=== PATIENT | female | born 1940 | race Hispanic/Latino ===

== ENCOUNTER 2019-04-05 19:57 | Observation (INO) | payer SELFPAY ==
[2019-04-05 20:45] LABS: Absolute Lymphocytes (CBC) 2.3 K/uL (0.7-4.9); Basophils % 0.5 % (0-1.3); Hematocrit 37.4 % (36.0-45.0); MPV 8.8 fL (7.6-11.3); RBC Red Blood Cell Count 4.25 M/uL (3.86-4.86)
[2019-04-05 20:48] LABS: Protime INR 0.97
[2019-04-05 21:05] LABS: ALT/SGPT 14 U/L (12-78); AST/SGOT 13 U/L (15-37); Albumin 3.6 g/dL (3.4-5.0); Alkaline Phosphatase 94 U/L (45-117); BUN Blood Urea Nitrogen 27 mg/dL (7-18); Bicarbonate 30 mmol/L (21-32); Bilirubin Direct < 0.1 mg/dL (0-0.2); Bilirubin Total 0.4 mg/dL (0.2-1.0); Glucose Level 261 mg/dL (74-106); Magnesium 1.8 mg/dL (1.8-2.4); NT PRO-BNP 438 pg/mL (<450); Potassium 4.6 mmol/L (3.5-5.1); Protein, Total 7.3 g/dL (6.4-8.2); Sodium Level 134 mmol/L (136-145); Troponin (Emerg Dept Use Only) < 0.02 ng/mL (0.0-0.045)
[2019-04-05] MEDS ORDERED: NA CHLORIDE 0.9% 1,000 ML ONE (21:52)
--- NOTE | 2019-04-05 21:55 | ER ---
Nurse's Notes [facility] Name: Gabriela Gayle Age: 79 yrs Sex: Female : 1940 Arrival Date: 04/05/2019 Time: 19:58 Bed 25 Private MD: Diagnosis: Strain of muscle, fascia and tendon at neck level;Essential (primary) hypertension;Dyspnea;Type 2 diabetes mellitus;Unspecified kidney failure-insufficency;Hypoxemia Presentation: 04/05 20:03 Presenting complaint: Patient states: Via deadener line: Pain in the left side of aj1 the neck that extends down the left arm and shortness of breath for the past 6 months, but last night she could not sleep because of the pain. Reports that she has seen a [employer] about this pain and they said that her heart was fine. Denies chest pain. Transition of care: patient was not received from another setting of care. Onset of symptoms was September 2018. Risk Assessment: Do you want to hurt yourself or someone else? Patient reports no desire to harm self or others. Initial Sepsis Screen: Does the patient meet any 2 criteria? No. Patient's initial sepsis screen is negative. Does the patient have a suspected source of infection? No. Patient's initial sepsis screen is negative. Care prior to arrival: None. 20:03 Method Of Arrival: Wheelchair aj1 20:03 Acuity: YARITZA 3 aj1 Triage Assessment: 20:11 General: Appears in no apparent distress. comfortable, Behavior is calm, cooperative, aj1 appropriate for age. Pain: Complains of pain in left side of neck Pain radiates to left arm Pain currently is 10 out of 10 on a pain scale. Neuro: Level of Consciousness is awake, alert, obeys commands, Oriented to person, place, time, situation. Cardiovascular: Denies chest pain, Patient's skin is warm and dry. Respiratory: Reports shortness of breath Airway is patent Respiratory effort is even, unlabored, Respiratory pattern is regular, symmetrical, Onset: The symptoms/episode began/occurred 6 months ago. 21:00 Respiratory: the patient has mild shortness of breath. mg2 Historical: - Allergies: 20:11 No Known Allergies; aj1 - PMHx: 20:11 Hyperlipidemia; Hypertension; Myocardial infarction; aj1 - Immunization history:: Flu vaccine is not up to date. - Social history:: Smoking status: Patient/guardian denies using tobacco. - Ebola Screening: : Patient denies travel to an Ebola-affected area in the 21 days before illness onset. Screenin:58 Abuse screen: Denies threats or abuse. Denies injuries from another. Nutritional mg2 screening: No deficits noted. Tuberculosis screening: No symptoms or risk factors identified. Fall Risk IV access (20 points). Assessment: 20:56 General: Appears in no apparent distress. comfortable, Behavior is calm, cooperative. mg2 Pain: Complains of pain in left side of neck Pain radiates to left arm Quality of pain is described as aching, Pain began 6 months ago Is intermittent. Neuro: Level of Consciousness is awake, alert, obeys commands, Oriented to person, place, time, situation. Cardiovascular: Capillary refill < 3 seconds Patient's skin is warm and dry. Rhythm is sinus rhythm. Respiratory: Airway is patent Respiratory effort is even, unlabored, Respiratory pattern is regular, symmetrical, Breath sounds are clear bilaterally. GI: No signs and/or symptoms were reported involving the gastrointestinal system. : No signs and/or symptoms were reported regarding the genitourinary system. EENT: No signs and/or symptoms were reported regarding the EENT system. Derm: Skin is intact, is healthy with good turgor, Skin is pink, warm \T\ dry. normal. Musculoskeletal: Circulation, motion, and sensation intact. Capillary refill < 3 seconds, Reports pain in left arm. 22:53 Reassessment: patient and family agreed for hospitalization. mg2 Vital Signs: 20:11 BP 161 / 70; Pulse 74; Resp 18; Temp 97.6; Pulse Ox 94% on R/A; Pain 10/10; aj1 20:59 BP 170 / 75; Pulse 69; Resp 18; Pulse Ox 94% on R/A; mg2 22:00 BP 161 / 78; Pulse 69; Resp 18; Pulse Ox 89% on R/A; mg2 23:22 BP 157 / 78; Pulse 64; Resp 18; Temp 98(O); Pulse Ox 100% on 4 lpm NC; mg2 ED Course: 19:58 Patient arrived in ED. ds1 20:08 Home Alfaro MD is Attending Physician. dario 20:09 Triage completed. aj1 20:11 Arm band placed on Patient placed in an exam room. aj1 20:13 Keven Chavira, RN is Primary Nurse. mg2 20:54 XRAY Chest (1 view) In Process Unspecified. EDMS 20:58 No provider procedures requiring assistance completed. Inserted saline lock: 20 gauge mg2 in left antecubital area, using aseptic technique. Blood collected. 20:59 Patient has correct armband on for positive identification. hall monitor on. Pulse mg2 ox on. NIBP on. Door closed. Warm blanket given. 21:52 Eric Farnsworth is Hospitalizing Provider. dario 22:09 CT completed. Patient tolerated procedure well. Patient moved back from CT. bq 22:19 CT Head C Spine In Process Unspecified. EDMS 22:51 US Carotid Artery Bilateral In Process Unspecified. EDMS 22:52 Ultrasound completed. Patient tolerated well. sg3 23:22 Patient admitted, IV remains in place. mg2 Administered Medications: 22:47 Drug: Aspirin 162 mg Route: PO; mg2 23:16 Follow up: Response: No adverse reaction mg2 22:48 Drug: NS 0.9% 500 ml Route: IV; Rate: bolus; Site: left antecubital; mg2 23:20 Follow up: Response: No adverse reaction; IV Status: Completed infusion; IV Intake: mg2 500ml 22:48 Drug: morphine 2 mg Route: IVP; Site: left antecubital; mg2 23:20 Follow up: Response: No adverse reaction; Marked relief of symptoms mg2 22:48 Drug: Zofran 4 mg Route: IVP; Site: left antecubital; mg2 23:20 Follow up: Response: No adverse reaction; Marked relief of symptoms mg2 23:20 Drug: NS 0.9% 1000 ml Route: IV; Rate: 125 ml/hr; Site: left antecubital; mg2 23:21 Follow up: Response: No adverse reaction; IV Status: Infusion continued upon admission mg2 Intake: 23:20 IV: 500ml; Total: 500ml. mg2 Outcome: 21:54 Decision to Hospitalize by Provider. dario 23:22 Admitted to Tele accompanied by tech, via wheelchair, room 406, with oxygen, with mg2 chart, Report called to PAULO Garcia 23:22 Condition: stable 23:22 Instructed on the need for admit, Demonstrated understanding of instructions. 23:45 Patient left the ED. mg2 Signatures: Dispatcher [employer] Pearl Lau RN RN aj1 Home Alfaro MD MD cha Quilty, Betty bq Sanford, Demi ds1 Nida Rodríguez 3 Keven Chavira, PAULO RN mg2
--- NOTE | 2019-04-05 21:55 | EDPHYS ---
Physician Documentation [facility] Name: Gabriela Gayle Age: 79 yrs Sex: Female : 1940 Arrival Date: 04/05/2019 Time: 19:58 Bed 25 Private MD: ED Physician Home Alfaro HPI: 04/05 21:48 This 79 yrs old Female presents to ER via Wheelchair with complaints of dario Shortness Of Breath. 21:48 The patient has shortness of breath at rest. Onset: The symptoms/episode began/occurred dario 2 day(s) ago. Historical: - Allergies: 20:11 No Known Allergies; aj1 - PMHx: 20:11 Hyperlipidemia; Hypertension; Myocardial infarction; aj1 - Immunization history:: Flu vaccine is not up to date. - Social history:: Smoking status: Patient/guardian denies using tobacco. - Ebola Screening: : Patient denies travel to an Ebola-affected area in the 21 days before illness onset. ROS: 21:49 Constitutional: Negative for fever, chills, and weight loss, Eyes: Negative for injury, dario pain, redness, and discharge, ENT: Negative for injury, pain, and discharge, Cardiovascular: Negative for chest pain, palpitations, and edema, Abdomen/GI: Negative for abdominal pain, nausea, vomiting, diarrhea, and constipation, Back: Negative for injury and pain, : Negative for injury, bleeding, discharge, and swelling, MS/Extremity: Negative for injury and deformity, Skin: Negative for injury, rash, and discoloration, Neuro: Negative for headache, weakness, numbness, tingling, and seizure, Psych: Negative for depression, anxiety, suicide ideation, homicidal ideation, and hallucinations, Allergy/Immunology: Negative for hives, rash, and allergies, Endocrine: Negative for neck swelling, polydipsia, polyuria, polyphagia, and marked weight changes, Hematologic/Lymphatic: Negative for swollen nodes, abnormal bleeding, and unusual bruising. 21:49 Neck: Positive for pain at rest. 21:49 Respiratory: Positive for shortness of breath, at rest. Exam: 21:49 Constitutional: This is a well developed, well nourished patient who is awake, alert, dario and in no acute distress. Head/Face: Normocephalic, atraumatic. Eyes: Pupils equal round and reactive to light, extra-ocular motions intact. Lids and lashes normal. Conjunctiva and sclera are non-icteric and not injected. Cornea within normal limits. Periorbital areas with no swelling, redness, or edema. ENT: Nares patent. No nasal discharge, no septal abnormalities noted. Tympanic membranes are normal and external auditory canals are clear. Oropharynx with no redness, swelling, or masses, exudates, or evidence of obstruction, uvula midline. Mucous membranes moist. Neck: Trachea midline, no thyromegaly or masses palpated, and no cervical lymphadenopathy. Supple, full range of motion without nuchal rigidity, or vertebral point tenderness. No Meningismus. Chest/axilla: Normal chest wall appearance and motion. Nontender with no deformity. No lesions are appreciated. Cardiovascular: Regular rate and rhythm with a normal S1 and S2. No gallops, murmurs, or rubs. Normal PMI, no JVD. No pulse deficits. Respiratory: Lungs have equal breath sounds bilaterally, clear to auscultation and percussion. No rales, rhonchi or wheezes noted. No increased work of breathing, no retractions or nasal flaring. Abdomen/GI: Soft, non-tender, with normal bowel sounds. No distension or tympany. No guarding or rebound. No evidence of tenderness throughout. Back: No spinal tenderness. No costovertebral tenderness. Full range of motion. Skin: Warm, dry with normal turgor. Normal color with no rashes, no lesions, and no evidence of cellulitis. MS/ Extremity: Pulses equal, no cyanosis. Neurovascular intact. Full, normal range of motion. Neuro: Awake and alert, GCS 15, oriented to person, place, time, and situation. Cranial nerves II-XII grossly intact. Motor strength 5/5 in all extremities. Sensory grossly intact. Cerebellar exam normal. Normal gait. Psych: Awake, alert, with orientation to person, place and time. Behavior, mood, and affect are within normal limits. 21:49 Musculoskeletal/extremity: DVT Exam: No signs of deep vein thrombosis. no pain, no swelling, no tenderness, negative Homans' sign noted on exam, no appreciated bluish discoloration, no erythema, no increased warmth. Vital Signs: 20:11 BP 161 / 70; Pulse 74; Resp 18; Temp 97.6; Pulse Ox 94% on R/A; Pain 10/10; aj1 20:59 BP 170 / 75; Pulse 69; Resp 18; Pulse Ox 94% on R/A; mg2 22:00 BP 161 / 78; Pulse 69; Resp 18; Pulse Ox 89% on R/A; mg2 23:22 BP 157 / 78; Pulse 64; Resp 18; Temp 98(O); Pulse Ox 100% on 4 lpm NC; mg2 MDM: 20:08 Patient medically screened. [facility] 21:50 Data reviewed: vital signs, nurses notes, lab test result(s), EKG, radiologic studies, [facility] CT scan, plain films. 04/05 20:30 Order name: Basic Metabolic Panel; Complete Time: 21:45 [facility] 04/05 20:30 Order name: CBC with Diff; Complete Time: 21:45 [facility] 04/05 20:30 Order name: LFT's; Complete Time: 21:45 [facility] 04/05 20:30 Order name: Magnesium; Complete Time: 21:45 [facility] 04/05 20:30 Order name: NT PRO-BNP; Complete Time: 21:45 [facility] 04/05 20:30 Order name: PT-INR; Complete Time: 21:45 [facility] 04/05 20:30 Order name: Troponin (emerg Dept Use Only); Complete Time: 21:45 [facility] 04/05 20:30 Order name: XRAY Chest (1 view) [facility] 04/05 21:47 Order name: D-Dimer [facility] 04/05 21:47 Order name: US Carotid Artery Bilateral [facility] 04/05 21:47 Order name: Urine Culture [facility] 04/05 21:48 Order name: CT Head C Spine [facility] 04/05 20:30 Order name: EKG; Complete Time: 20:31 [facility] 04/05 20:30 Order name: Cardiac monitoring; Complete Time: 20:49 [facility] 04/05 20:30 Order name: EKG - Nurse/Tech; Complete Time: 20:49 [facility] 04/05 20:30 Order name: IV Saline Lock; Complete Time: 20:49 [facility] 04/05 20:30 Order name: Labs collected and sent; Complete Time: 20:49 [facility] 04/05 20:30 Order name: O2 Per Protocol; Complete Time: 20:49 [facility] 04/05 20:30 Order name: O2 Sat Monitoring; Complete Time: 20:49 [facility] 04/05 21:47 Order name: Urine Dipstick-Ancillary (obtain specimen); Complete Time: 22:16 dario Administered Medications: 22:47 Drug: Aspirin 162 mg Route: PO; mg2 23:16 Follow up: Response: No adverse reaction mg2 22:48 Drug: NS 0.9% 500 ml Route: IV; Rate: bolus; Site: left antecubital; mg2 23:20 Follow up: Response: No adverse reaction; IV Status: Completed infusion; IV Intake: mg2 500ml 22:48 Drug: morphine 2 mg Route: IVP; Site: left antecubital; mg2 23:20 Follow up: Response: No adverse reaction; Marked relief of symptoms mg2 22:48 Drug: Zofran 4 mg Route: IVP; Site: left antecubital; mg2 23:20 Follow up: Response: No adverse reaction; Marked relief of symptoms mg2 23:20 Drug: NS 0.9% 1000 ml Route: IV; Rate: 125 ml/hr; Site: left antecubital; mg2 23:21 Follow up: Response: No adverse reaction; IV Status: Infusion continued upon admission mg2 Disposition: 04/05/19 21:54 Hospitalization ordered by Eric Farnsworth for Inpatient Admission. Preliminary diagnosis are Strain of muscle, fascia and tendon at neck level, Essential (primary) hypertension, Dyspnea, Type 2 diabetes mellitus, Unspecified kidney failure - insufficency, Hypoxemia. - Bed requested for Telemetry/MedSurg (Inpatient). - Status is Inpatient Admission. mg2 - Condition is Stable. - Problem is new. - Symptoms have improved. UTI on Admission? No Signatures: Dispatcher [employer] EDPA Pearl Beard RN RN aj1 Home Alfaro MD MD cha Garcia, Cindy, RN RN Keven Chavira RN RN mg2 Corrections: (The following items were deleted from the chart) 22:04 21:54 Hospitalization Ordered by Eric Farnsworth for Inpatient Admission. Preliminary dario diagnosis is Strain of muscle, fascia and tendon at neck level; Essential (primary) hypertension; Dyspnea; Type 2 diabetes mellitus; Unspecified kidney failure - insufficency. Bed requested for Telemetry/MedSurg (Inpatient). Status is Inpatient Admission. Condition is Stable. Problem is new. Symptoms have improved. UTI on Admission? No. dario 23:06 22:04 04/05/2019 21:54 Hospitalization Ordered by Eric Farnsworth for Inpatient cg Admission. Preliminary diagnosis is Strain of muscle, fascia and tendon at neck level; Essential (primary) hypertension; Dyspnea; Type 2 diabetes mellitus; Unspecified kidney failure - insufficency; Hypoxemia. Bed requested for Telemetry/MedSurg (Inpatient). Status is Inpatient Admission. Condition is Stable. Problem is new. Symptoms have improved. UTI on Admission? No. dario 23:45 23:06 04/05/2019 21:54 Hospitalization Ordered by Eric Farnsworth for Inpatient mg2 Admission. Preliminary diagnosis is Strain of muscle, fascia and tendon at neck level; Essential (primary) hypertension; Dyspnea; Type 2 diabetes mellitus; Unspecified kidney failure - insufficency; Hypoxemia. Bed requested for Telemetry/MedSurg (Inpatient). Status is Inpatient Admission. Condition is Stable. Problem is new. Symptoms have improved. UTI on Admission? No. cg
[2019-04-05] MEDS ORDERED: ASPIRIN EC 81 MG TAB PO ONE (22:27)
[2019-04-05] MEDS ORDERED: MORPHINE 2 MG/ML SYR ONE (22:27)
[2019-04-05] MEDS ORDERED: ONDANSETRON 4 MG/2 ML VIAL ONE (22:27)
[2019-04-06 00:04] VITALS: BMI 23.6
[2019-04-06 00:23] LABS: Urine Appearance CLEAR; Urine Bilirubin NEGATIVE (NEG); Urine Blood NEGATIVE (NEG); Urine Color YELLOW; Urine Glucose 2+ (NEG); Urine Protein NEGATIVE (NEG); Urine Urobilinogen 0.2 mg/dL (0.2-1.0)
[2019-04-06 00:24] LABS: Urine Microscopic Reflex NO UMIC
--- NOTE | 2019-04-06 00:45 | P.HP ---
Certification for Inpatient Patient admitted to: Observation With expected LOS: <2 Midnights Practitioner: I am a practitioner with admitting privileges, knowledge of patient current condition, hospital course, and medical plan of care. Services: Services provided to patient in accordance with Admission requirements found in Title 42 Section 412.3 of the Code of Federal Regulations Patient History Date of Service: 04/06/19 Reason for admission: Neck and left shoulder History of Present Illness: 79-year-old Mongolian-speaking woman visiting from [place], history of coronary artery disease, hypertension and hyperlipidemia presented to the emergency department accompanied by her daughter with a complaint pain on the left side of her neck, radiates to her shoulder and arm, described as intermittent, present for about 1 week. According to the daughter, patient saw her physician at [place] and was told her heart was fine. She presented to the ED due to increasing pain. In the ED, initial troponin negative, chest x-ray unremarkable, EKG also unremarkable non-specific ST-T changes. Head CT negative for acute disease. Cervical spine CTs done and the result is pending. Patient is placed under observation for acute coronary syndrome rule out. Allergies No Known Allergies Allergy (Verified 04/06/19 00:00) Home Medications: Aspirin Chewable [Aspirin Chewable*] 1 tab PO DAILY 04/06/19 Clopidogrel Bisulfate [Plavix*] 1 tab PO DAILY 04/06/19 Felodipine [Plendil] 1 tab PO DAILY 04/06/19 Omeprazole 1 tab PO DAILY 04/06/19 - Past Medical/Surgical History -: CAD -: Hypertension -: Hyperlipidemia - Family History Family History: Reviewed- Non-Contributory - Family History Father Notes: denies Mother Notes: denies - Social History Smoking Status: Never smoker Alcohol use: No CD- Drugs: No Review of Systems Other: General: No fever, no malaise, no unintentional weight loss. Eyes: No eye discharge, Respiratory: No cough, no shortness of breath. CVS: No palpitation, no lightheadedness. GI: No abdominal pain, no nausea no vomit, no constipation, no diarrhea. Genitourinary: No dysuria, no urinary frequency, no incontinence, no hematuria. Musculoskeletal: No joint pains, or joint swelling, no gait instability. Neurology: No headache, no asymmetric, weakness, no problem with swallowing. Except as documented, all other systems reviewed and negative. Physical Examination - Vital Signs Temperature: 98 F Blood Pressure: 157/78 Pulse: 64 Respirations: 18 - Physical Exam General: Alert, In no apparent distress, Oriented x3 HEENT: Normocephalic, Mucous membr. moist/pink Neck: Supple, 2+ carotid pulse no bruit, JVD not distended, No Thyromegaly Respiratory: Clear to auscultation bilaterally, Normal air movement Cardiovascular: No edema, Regular rate/rhythm, Normal S1 S2, No murmurs Capillary refill: <2 Seconds Gastrointestinal: Normal bowel sounds, Soft and benign, Non-distended, No tenderness Musculoskeletal: Tenderness (Left lateral aspect of neck and supraclavicular area.) Integumentary: No rashes, No erythema Neurological: Normal speech, Normal strength at 5/5 x4 extr, Cranial nerves 3- 12 intact - Studies Laboratory Data (last 24 hrs) 04/05/19 20:35: PT 11.5, INR 0.97 04/05/19 20:35: WBC 7.3, Hgb 12.4, Hct 37.4, Plt Count 165 04/05/19 20:35: Sodium 134 L, Potassium 4.6, BUN 27 H, Creatinine 1.15, Glucose 261 H, Magnesium 1.8, Total Bilirubin 0.4, AST 13 L, ALT 14, Alkaline Phosphatase 94 Assessment and Plan - Problems (Diagnosis) (1) Neck pain on left side Current Visit: Yes Status: Acute (2) CAD (coronary artery disease) Current Visit: Yes Status: Chronic (3) Hypertension Current Visit: Yes Status: Chronic (4) Hyperlipidemia Current Visit: Yes Status: Chronic - Plan Place under observation Trend troponin Resume home aspirin and Plavix Check lipid profile Start Lipitor Follow CT cervical spine result Pain management-tramadol Metoprolol 25 mg bid for CAD and hypertension. - Advance Directives Does patient have a Living Will: No Does patient have a Durable POA for Healthcare: No
[2019-04-06] MEDS ORDERED: TRAMADOL HCL 50 MG TAB PO PRN (01:10)
[2019-04-06] MEDS ORDERED: ACETAMINOPHEN 500 MG TAB PO PRN (01:10)
[2019-04-06] MEDS ORDERED: NITROGLYCERIN 0.4 MG/TAB SL PRN (01:10)
[2019-04-06 02:28] LABS: HDL Cholesterol 72 mg/dL (40-60); LDL Cholesterol, Calculated 76 (<130); Troponin I < 0.02 ng/mL (0.0-0.045)
[2019-04-06] MEDS ORDERED: METOPROLOL TAR 25 MG TAB PO SCH (06:00)
--- NOTE | 2019-04-06 07:13 | RAD REPORT ---
EXAM DESCRIPTION: USCarotid Artery Ixzqkahdw10/20/2019 10:51 pm CLINICAL HISTORY: Syncope/neck pain COMPARISON: None FINDINGS: The velocity of the right internal carotid artery equals 90 cm/sec. The right ICA/CCA rati o 1 The velocity of the left internal carotid artery equals 116 cm/sec. The left ICA/CCA ratio 0.8 Minimal plaque is present within the carotid arteries. The vertebral arteries demonstrate antegrade flow IMPRESSION: Minimal plaque within the carotid arteries without evidence of a hemodynamically signifi cant stenosis NASCET criteria used. Mild 0-49% stenosis Moderate 50-69% stenosis Severe 70-99% stenosis
[2019-04-06] MEDS: INSULIN -REGULAR HUMAN 50 UNIT/0.5 ML ML SQ SCH ×4 (07:30→21:00)
--- NOTE | 2019-04-06 07:30 | RAD REPORT ---
EXAM DESCRIPTION: Mare Single View04/05/2019 8:55 pm CLINICAL HISTORY: sob COMPARISON: none FINDINGS: Mild biapical lung opacities Heart is normal size Mild prominence right hilum IMPRESSION: Mild biapical lung opacities may represent scarring or mild pneumonitis Mild prominence of the right hilum probably confluence of pulmonary vessels. Lymphadenopathy can also have this appearance but probably is less likely. PA and lateral chest series recommended
--- NOTE | 2019-04-06 07:51 | EKG ---
Test Date: 2019-04-05 Test Time: 20:42:34 Watch Dial Maker: MG MEASUREMENT RESULTS: Intervals: Rate: 69 MI: 180 QRSD: 76 QT: 378 QTc: 405 [place]: P: 71 MI: 180 QRS: -7 T: 26 INTERPRETIVE STATEMENTS: Normal sinus rhythm Septal infarct, age undetermined Abnormal ECG No previous ECG available for comparison Electronically Signed On 04-06-19 07:50:19 CDT by Samuel Moseley
[2019-04-06] MEDS: ENOXAPARIN 30 MG/0.3 ML SQ SCH (08:29)
[2019-04-06] MEDS ORDERED: INFLUENZA VACCINE (for 3y+) 0.5 ML DOSE IMVAC ONE (09:00)
[2019-04-06] MEDS ORDERED: PNEUMOCOCCAL VACCINE 0.5 ML IMVAC ONE (09:00)
[2019-04-06] MEDS ORDERED: ENOXAPARIN 40 MG/0.4 ML SQ SCH (09:00)
[2019-04-06] MEDS ORDERED: ASPIRIN EC 81 MG TAB PO SCH (09:00)
--- NOTE | 2019-04-06 10:14 | RAD REPORT ---
EXAM DESCRIPTION: CT - Head C Spine Mpr Wo Con - 04/05/2019 10:53 pm CLINICAL HISTORY: The patient is 79 years old and is Female; PAIN TECHNIQUE: Axial computed tomography images of the head/brain and cervical spine without intravenous contrast. Sagittal and coronal reformatted images were created and reviewed. This CT exam was pe rformed using one or more of the following dose reduction techniques: automated exposure control, a djustment of the mA and/or kV according to patient size, and/or use of iterative reconstruction techn ique. COMPARISON: No relevant prior studies available. FINDINGS: Brain: Periventricular and deep white matter hypodensities, most commonly due to nonspec [facility] white matter chronic microvascular ischemia. Mild cerebral atrophy. Multiple scattered calcifications throughout the brain may be secondary to prior infectious or inflammatory process. No hemorrhage. Ventricles: Unremarkable. No ventriculomegaly. Skull: No acute fracture. Sinuses: Unremarkable as visualized. No acute sinusitis. Mastoid air cells: Unremarkable as visualized. No mastoid effusion. Vertebrae: Unremarkable. No acute fracture. Normal alignment. Discs/spinal canal/neural foramina: With disc height loss and osteophyte formation seen at C4/5 and C5/6. No spinal canal stenosis. Soft tissues: Unremarkable. Vasculature: Vascular calcifications. IMPRESSION: 1. No acute spine abnormality. No fracture or subluxation. Spine degenerative changes. 2. No acute intracranial findings. Mild cerebral atrophy and nonspecific chronic microvascular isch emic changes. Electronically signed by: Curt Jay MD 04/05/2019 10:48 PM CDT Due to temporary technical issues with the PACS/Fluency reporting system, reports are being signed by the in house radiologist as a courtesy to ensure prompt reporting. The interpreting radiologist is f ully responsible for the content of the report.
--- NOTE | 2019-04-06 12:00 | RAD REPORT ---
EXAM DESCRIPTION: CT - Thorax Wo Con - 04/06/2019 11:37 am CLINICAL HISTORY: sob COMPARISON: April 05, 2019 chest x-ray TECHNIQUE: Computed axial tomography of the chest was obtained. Contrast was not requested. All CT scans are performed using dose optimization technique as appropriate and may include automated exposure control or mA/KV adjustment according to patient size. FINDINGS: The evaluation of mediastinum, priscila and vessels is limited secondary to lack of IV contras t administration. Mild tree-in-bud opacities are present within the lungs bilaterally. Calcified mediastinal lymph nodes are present. Noncalcified lymphadenopathy is not seen. A pleural effusion is not present. No pericardial effusion IMPRESSION: Mild bilateral tree-in-bud opacities may indicate an atypical pneumonia
[2019-04-06] MEDS: AZITHROMYCIN IV 500 MG in NA CHLORIDE 0.9% 250 ML IVPB SCH (14:31)
[2019-04-06] MEDS: CEFTRIAXONE/SWI 1gm 1 GM/10 ML SYR IV SCH (14:31)
[2019-04-06] MEDS ORDERED: ATORVASTATIN 20 MG TAB PO SCH (21:00)
[2019-04-07 04:07] LABS: Absolute Lymphocytes (CBC) 1.5 K/uL (0.7-4.9); Basophils % 0.8 % (0-1.3); Lymphocytes % 19.8 % (15.3-44.8); MPV 9.2 fL (7.6-11.3); RBC Red Blood Cell Count 3.88 M/uL (3.86-4.86)
[2019-04-07 04:24] LABS: Potassium 4.7 mmol/L (3.5-5.1)
[2019-04-07] MEDS: INSULIN -REGULAR HUMAN 50 UNIT/0.5 ML ML SQ SCH (07:30)
[2019-04-07 08:21] VITALS: BP 145/66; TEMP 99.1
[2019-04-07] MEDS: AZITHROMYCIN IV 500 MG in NA CHLORIDE 0.9% 250 ML IVPB SCH (08:25)
[2019-04-07] MEDS: ENOXAPARIN 30 MG/0.3 ML SQ SCH (08:26)
[2019-04-07] MEDS: CEFTRIAXONE/SWI 1gm 1 GM/10 ML SYR IV SCH (08:26)
[2019-04-07 08:35] VITALS: O2SAT 95
[2019-04-07] MEDS ORDERED: FELODIPINE 5 MG TAB PO SCH (09:00)
[2019-04-07] MEDS ORDERED: ASPIRIN 81 MG CHEWABLE TABLET PO SCH (09:00)
[2019-04-07] MEDS ORDERED: CLOPIDOGREL 75 MG TABLET PO SCH (09:00)
[2019-04-07] MEDS ORDERED: PANTOPRAZOLE 40MG TABLET PO SCH (09:00)
--- NOTE | 2019-04-07 11:55 | P.SSS ---
Patient History Date of Service: 04/07/19 Reason for admission: Neck and left shoulder History of Present Illness: 79-year-old Nigerian-speaking woman visiting from [place], history of coronary artery disease, hypertension and hyperlipidemia presented to the emergency department accompanied by her daughter with a complaint pain on the left side of her neck, radiates to her shoulder and arm, described as intermittent, present for about 1 week. According to the daughter, patient saw her physician at [place] and was told her heart was fine. She presented to the ED due to increasing pain. In the ED, initial troponin negative, chest x-ray unremarkable, EKG also unremarkable non-specific ST-T changes. Head CT negative for acute disease. Cervical spine CTs done and the result is pending. Patient is placed under observation for acute coronary syndrome rule out. Allergies No Known Allergies Allergy (Verified 04/06/19 00:00) Home Medications: Aspirin Chewable [Aspirin Chewable*] 1 tab PO DAILY 04/06/19 Clopidogrel Bisulfate [Plavix*] 1 tab PO DAILY 04/06/19 Felodipine [Plendil] 1 tab PO DAILY 04/06/19 Omeprazole 1 tab PO DAILY 04/06/19 Azithromycin 500 mg PO DAILY #7 tablet 04/07/19 - Past Medical/Surgical History Has patient received pneumonia vaccine in the past: Yes Diabetic: Yes -: CAD -: Hypertension -: Hyperlipidemia -: DM 2 -: heart cath (5 years ago) - Family History Family History: Reviewed- Non-Contributory - Family History Father Notes: denies Mother Notes: denies - Social History Smoking Status: Never smoker Alcohol use: No CD- Drugs: No Caffeine use: No Place of Residence: Home Review of Systems 10-point ROS is otherwise unremarkable Physical Examination - Vital Signs Temperature: 99.1 F Blood Pressure: 145/66 Pulse: 80 Respirations: 18 Pulse Ox (%): 88 - Physical Exam General: Alert, In no apparent distress HEENT: Atraumatic, PERRLA, Mucous membr. moist/pink, EOMI, Sclerae nonicteric Neck: Supple, 2+ carotid pulse no bruit, No LAD, Without JVD or thyroid abnormality Respiratory: Clear to auscultation bilaterally, Normal air movement Cardiovascular: Regular rate/rhythm, Normal S1 S2 Gastrointestinal: Normal bowel sounds, No tenderness Musculoskeletal: No tenderness Integumentary: No rashes Neurological: Normal gait, Normal speech, Normal strength at 5/5 x4 extr, Normal tone, Normal affect Lymphatics: No axilla or inguinal lymphadenopathy - Studies Microbiology Data (last 24 hrs): 04/05/19 22:00 Clean Catch Urine [place] Count - Final >100,000 CFU/ML. 04/05/19 22:00 Clean Catch Urine - Final - Diagnosis (Problem(s)) (1) Pneumonia Status: Acute Qualifiers: Pneumonia type: due to unspecified organism Laterality: unspecified laterality Lung location: unspecified part of lung Qualified Code(s): J18.9 - Pneumonia, unspecified organism (2) Neck pain on left side Status: Acute (3) CAD (coronary artery disease) Status: Chronic Qualifiers: Coronary Disease-Associated Artery/Lesion type: [place] artery [place] vs. transplanted heart: [place] heart Associated angina: without angina Qualified Code(s): I25.10 - Atherosclerotic heart disease of [place] coronary artery without angina pectoris (4) Hyperlipidemia Status: Chronic Qualifiers: Hyperlipidemia type: unspecified Qualified Code(s): E78.5 - Hyperlipidemia , unspecified (5) Hypertension Status: Chronic Qualifiers: Hypertension type: essential hypertension Qualified Code(s): I10 - Essential (primary) hypertension Treatment Summary: Overall during the hospital stay patient remained stable Patient was initially admitted to the hospital for having neck pain on the left side which was radiating down to her left arm. Initially patient was admitted for ACS rule out. Troponin x2 was negative while here in the hospital. Echocardiogram was done which was within normal limits. CT chest was done to evaluate for infectious process. Patient had atypical budding pneumonia noted on the CT in. Patient was started on antibiotics. Had marked improvement in her symptoms. Neck pain had all most resolved while here in the hospital. Patient was then discharged home under stable condition. Initially patient was placed on oxygen patient however was weaned off completely from oxygenation. Patient was educated extensively regarding the use of incentive spirometer to help her lungs expand and to which aloe breathing. Patient family members both demonstrated understanding and thus patient was discharged home on a prescription of azithromycin. Patient was asked to follow up with primary care provider in about 1-2 days post discharge. - Disposition Disposition: ROUTINE DISCHARGE Condition: GOOD Diet: Regular Activity: Ad kimber
== END 2019-04-07 11:40 | disposition home or self-care (01) ==
LOC: ER 19:57 → INTOOBSV 23:32 → 4TH 23:32
PROVIDERS: ADMIT Internal Medicine; ATTEND Family Medicine
DX: M54.2 Cervicalgia (principal); J18.9 Pneumonia, unspecified organism; I25.10 Atherosclerotic heart disease of native coronary artery without angina pectoris; I10 Essential (primary) hypertension; E78.5 Hyperlipidemia, unspecified; E11.9 Type 2 diabetes mellitus without complications; Z23 Encounter for immunization
CPT/HCPCS: 36415; 70450; 71045; 71250; 72125; 80048; 80061; 80076; 81003; 82947; 82962; 83735; 83880; 84484; 85025; 85379; 85610; 87086; 87088; 90471; 90670; 93005; 93880; 94760; 96361; 96374; 96375; 99285; G0378; J0456; J0696; J1650; J2270; J2405; J7030; Q2035

== ENCOUNTER 2023-06-17 13:15 | Inpatient (IN) | payer SELFPAY ==
[2023-06-17 14:04] LABS: Absolute Lymphocytes (CBC) 0.7 K/uL (0.7-4.9); Hematocrit 36.6 % (36.0-45.0); Lymphocytes % 6.4 % (15.3-44.8); MCV 91.8 fL (80-100); MPV 8.9 fL (7.6-11.3); Platelets 276 thou/uL (152-406); RBC Red Blood Cell Count 3.98 M/uL (3.86-4.86)
[2023-06-17 14:22] LABS: Protime INR 1.08
[2023-06-17] MEDS ORDERED: ASPIRIN 81 MG CHEWABLE TABLET ONE (14:25)
[2023-06-17 14:37] LABS: Albumin 2.6 g/dL (3.4-5.0); Bilirubin Direct 0.1 mg/dL (0-0.2); Bilirubin Indirect, Calculated 0.2 mg/dL (0.2-0.8); Bilirubin Total 0.3 mg/dL (0.2-1.0); Magnesium 1.6 mg/dL (1.6-2.4); Potassium 5.5 mEq/L (3.5-5.1); Protein, Total 7.7 g/dL (6.4-8.2); Troponin High Sensitivity 15.3 pg/mL (<58.9)
[2023-06-17 14:41] LABS: SARS-COV-2 RT PCR NEGATIVE (NEGATIVE)
--- NOTE | 2023-06-17 14:44 | RAD REPORT ---
EXAM DESCRIPTION: Mare Single View06/17/2023 2:23 pm CLINICAL HISTORY: Shortness of breath COMPARISON: 2018 FINDINGS: A vague opacity left upper lobe. Right lung appears clear of acute infiltrate. Heart is normal size IMPRESSION: Vague left upper lobe opacity may represent pneumonia. This should be followed until it has cleared to help exclude a post obstructive process/underlying mass
[2023-06-17] MEDS ORDERED: NA CHLORIDE 0.9% 100 ML ONE (14:59)
[2023-06-17] MEDS ORDERED: PIPERACIL/TAZO 3.375 GM VIAL IV ONE (14:59)
[2023-06-17] MEDS ORDERED: NA CHLORIDE 0.9% 500 ML ONE (14:59)
[2023-06-17] MEDS ORDERED: NA CHLORIDE 0.9% 250 ML ONE ×2 (14:59→18:18)
--- NOTE | 2023-06-17 15:16 | EDPHYS ---
[facility] Name: Gabriela Gayle Age: 83 yrs Sex: Female : 1940 Arrival Date: 06/17/2023 Time: 13:15 Bed 17 Private MD: ED Physician Bar Chaudhary HPI: 06/17 14:12 This 83 yrs old Female presents to ER via Wheelchair with complaints of High snw Blood Sugar, Shortness Of Breath. 14:12 The patient or guardian reports hyperglycemia, that was potentially precipitated by snw URI. Onset: The symptoms/episode began/occurred acutely. Associated signs and symptoms: Pertinent positives: shortness of breath. Current symptoms: In the emergency department the patient's symptoms are unchanged from the initial presentation. The patient has experienced similar episodes in the past. It is unknown whether or not the patient has recently seen a physician. lives in [place], here visiting. Historical: - Allergies: 13:30 No Known Allergies; aa5 - PMHx: 13:30 Hyperlipidemia; Hypertension; Myocardial infarction; Diabetes mellitus; aa5 - PSHx: 13:30 heart cath; aa5 - Immunization history:: Adult Immunizations up to date. - Social history:: Smoking status: Patient denies any tobacco usage or history of. ROS: 14:11 Constitutional: Negative for fever, chills, and weight loss, Eyes: Negative for injury, snw pain, redness, and discharge, ENT: Negative for injury, pain, and discharge, Neck: Negative for injury, pain, and swelling, Cardiovascular: Negative for chest pain, palpitations, and edema, Abdomen/GI: Negative for abdominal pain, nausea, vomiting, diarrhea, and constipation, Back: Negative for injury and pain, : Negative for injury, bleeding, discharge, and swelling, MS/Extremity: Negative for injury and deformity, Skin: Negative for injury, rash, and discoloration, Neuro: Negative for headache, weakness, numbness, tingling, and seizure, Psych: Negative for depression, anxiety, suicide ideation, homicidal ideation, and hallucinations, 14:11 Respiratory: Positive for shortness of breath, on exertion. Exam: 14:10 Head/Face: Normocephalic, atraumatic. Eyes: Pupils equal round and reactive to light, snw extra-ocular motions intact. Lids and lashes normal. Conjunctiva and sclera are non-icteric and not injected. Cornea within normal limits. Periorbital areas with no swelling, redness, or edema. ENT: Nares patent. No nasal discharge, no septal abnormalities noted. Tympanic membranes are normal and external auditory canals are clear. Oropharynx with no redness, swelling, or masses, exudates, or evidence of obstruction, uvula midline. Mucous membranes moist. Neck: Trachea midline, no thyromegaly or masses palpated, and no cervical lymphadenopathy. Supple, full range of motion without nuchal rigidity, or vertebral point tenderness. No Meningismus. Chest/axilla: Normal chest wall appearance and motion. Nontender with no deformity. No lesions are appreciated. 14:10 Abdomen/GI: Soft, non-tender, with normal bowel sounds. No distension or tympany. No guarding or rebound. No evidence of tenderness throughout. Back: No spinal tenderness. No costovertebral tenderness. Full range of motion. Skin: Warm, dry with normal turgor. Normal color with no rashes, no lesions, and no evidence of cellulitis. MS/ Extremity: Pulses equal, no cyanosis. Neurovascular intact. Full, normal range of motion. Neuro: Awake and alert, GCS 15, oriented to person, place, time, and situation. Cranial nerves II-XII grossly intact. Motor strength 5/5 in all extremities. Sensory grossly intact. Cerebellar exam normal. Normal gait. Psych: Awake, alert, with orientation to person, place and time. Behavior, mood, and affect are within normal limits. 14:10 Constitutional: The patient appears alert, awake, frail, 14:10 Cardiovascular: Rhythm: irregularly irregular, Pulses: no pulse deficits are appreciated, Heart sounds: normal, Edema: is not appreciated, 14:10 Respiratory: mild respiratory distress is noted, Respirations: normal, Breath sounds: + upper airway congestion. wheezing: that is mild, is heard diffusely, Vital Signs: 13:20 BP 164 / 90; Pulse 130; Resp 26 S; Temp 98.3(O); Pulse Ox 78% on R/A; aa5 13:25 Pulse Ox 100% on 3 lpm NC; aa5 16:15 BP 194 / 78; Pulse 72; Resp 18; Pulse Ox 100% on 3 lpm NC; cm10 18:09 BP 179 / 77; Pulse 76; Resp 18; Pulse Ox 97% on 3 lpm NC; cm10 MDM: 13:28 Patient medically screened. snw 14:45 Post IV fluid administration reassessment for Sepsis: Sepsis focused reassessment snw complete. Heart: Irregular rhythm noted. no tachycardia Other: Did not give entire 30/kg bolus 2nd to CAD with elevated BNP. ED course: Sepsis criteria post X-ray 1. Source Pneumonia, 2. Resp rate 26, HR 130 3.. no third criteria for sepsis. 14:54 Differential diagnosis: hyperglycemia, pneumonia, dehydration. Data reviewed: vital snw signs, nurses notes. I considered the following discharge prescriptions or medication management in the emergency department Medications were administered in the Emergency Department. See AUG. 14:56 Historians other than the Patient: Daughter/Son: Daughters. Counseling: I had a snw detailed discussion with the patient and/or guardian regarding the historical points, exam findings, and any diagnostic results supporting the discharge/admit diagnosis, the presence of at least one elevated blood pressure reading (>120/80) during this emergency department visit, lab results, radiology results, the need for further work-up and treatment in the hospital. Response to treatment: the patient's symptoms have mildly improved after treatment. 16:09 Management of patient was discussed with the following: Hospitalist: Fuentes Red for Dr. pina Farnsworth. 06/17 13:34 Order name: Basic Metabolic Panel; Complete Time: 14:43 snw 06/17 13:34 Order name: CBC with Diff; Complete Time: 14:09 w 06/17 13:34 Order name: LFT's; Complete Time: 14:43 snw 06/17 13:34 Order name: Magnesium; Complete Time: 14:43 snw 06/17 13:34 Order name: NT PRO-BNP; Complete Time: 14:43 snw 06/17 13:34 Order name: PT-INR; Complete Time: 14:27 snw 06/17 13:34 Order name: Troponin HS; Complete Time: 14:43 snw 06/17 13:34 Order name: COVID-19/FLU A+B/RSV; Complete Time: 14:42 snw 06/17 14:46 Order name: Blood Culture Adult (2) formerly [facility], 1928–1983 06/17 14:46 Order name: Lactate w/ 2H reflex if indic.; Complete Time: 16:06 snw 06/17 17:07 Order name: Glucose, Ancillary Testing; Complete Time: 17:07 EDMS 06/17 18:42 Order name: Glucose, Ancillary Testing; Complete Time: 18:55 EDMS 06/17 13:34 Order name: XRAY Chest (1 view); Complete Time: 14:46 snw 06/17 15:12 Order name: CT Chest Wo Con; Complete Time: 16:30 snw 06/17 13:34 Order name: EKG; Complete Time: 13:35 snw 06/17 13:25 Order name: FSBS; Complete Time: 17:06 snw 06/17 13:34 Order name: Cardiac monitoring; Complete Time: 14:35 snw 06/17 13:34 Order name: EKG - Nurse/Tech; Complete Time: 14:35 snw 06/17 13:34 Order name: IV Saline Lock; Complete Time: 13:59 snw 06/17 13:34 Order name: Labs collected and sent; Complete Time: 14:35 snw 06/17 13:34 Order name: O2 Per Protocol; Complete Time: 13:59 snw 06/17 13:34 Order name: O2 Sat Monitoring; Complete Time: 13:59 snw EC:35 Rate is 81 beats/min. Rhythm is irregular. Left axis deviation noted. Clinical snw impression: premature atrial complexes. Administered Medications: 14:36 Drug: Aspirin PO Chewable Tablet 324 mg PO once; 81 mg tablets x 4 Route: PO; cm10 21:37 Follow up: Response: No adverse reaction cm10 16:37 Drug: NS 0.9% IV 750 ml IV at bolus continuous Route: IV; Rate: bolus; Site: left cm10 antecubital; 18:15 Follow up: Response: No adverse reaction; IV Status: Completed infusion; IV Intake: cm10 750ml 16:37 Drug: Piperacillin-Tazobactam IVPB 3.375 grams IVPB once over 60 mins; (mix in NS 100 cm10 mL) Route: IVPB; Infused Over: 60 mins; Site: left antecubital; 18:15 Follow up: Response: No adverse reaction; IV Status: Completed infusion cm10 16:56 CANCELLED (Physician Discretion): insulin regular human10 units IVP once snw 18:34 Drug: NS 0.9% IV 250 ml IV at bolus once Route: IV; Rate: bolus; Site: right forearm; cm10 21:37 Follow up: Response: No adverse reaction; IV Status: Completed infusion; IV Intake: cm10 250ml 18:34 Drug: NS 0.9% IV 1000 ml IV at 75 ml/hr continuous Route: IV; Rate: 75 ml/hr; Site: cm10 right forearm; 21:37 Follow up: Response: No adverse reaction; IV Status: Infusion continued upon transfer cm10 Disposition Summary: 06/17/23 15:15 Hospitalization Ordered Notes: Hospitalization Status: Inpatient Admission snw Provider: Eric Farnsworth snamarilys Location: Telemetry/[facility] (Inpatient) snw Condition: Stable snw Problem: new snw Symptoms: are unchanged snw Bed/Room Type: Standard snw Room Assignment: [id number](06/17/23 21:06) cg Diagnosis - Pneumonia, unspecified organism snw - Dehydration snw - Type 2 diabetes mellitus with hyperglycemia snw - Chronic kidney disease, stage 3 (moderate) - with MARTA 1.15 ->1.44(06/17/23 15:18) snw Forms: - Medication Reconciliation Form snw - SBAR form snw - Leadership Thank You Letter snw Addendum: 06/26/2023 07:02 Co-signature as Attending Physician, Bar Chaudhary MD I reviewed the patient's care r n provided by the Advanced Practice Provider and agree with the diagnosis and treatment plan. Signatures: Dispatcher [employer] Shaylee Carter, ANGIE-C CERTIFIED HEALTH EDUCATION SPECIALIST-Csnw Bar Chaudhary MD MD rn Calderon, Audri, RN RN aa5 Fuentes Red FNP-C CERTIFIED HEALTH EDUCATION SPECIALIST-Cla1 Rachelle Osei RN RN cg Martinez, Clarissa RN RN cm10 Corrections: (The following items were deleted from the chart) 06/17 14:56 14:54 Counseling: I had a detailed discussion with the patient and/or guardian snw regarding the historical points, exam findings, and any diagnostic results supporting the discharge/admit diagnosis, lab results, radiology results, the need for outpatient follow up, for definitive care, a family practitioner, an OB/Gyne specialist, a urologist, snw 14:56 14:54 Response to treatment: the patient's symptoms have markedly improved after snw treatment, snw 15:18 15:15 Chronic kidney disease, stage 3 (moderate) snw snw 16:56 15:12 Insulin Regular Human IVP 10 units IVP once ordered. snw snw 16:56 16:56 Insulin Regular Human IVP 10 units IVP once ordered. w snw 21:06 15:15 snw cg
--- NOTE | 2023-06-17 15:16 | ER ---
Nurse's Notes [facility] Name: Gabriela Gayle Age: 83 yrs Sex: Female : 1940 Arrival Date: 06/17/2023 Time: 13:15 Bed 17 Private MD: Diagnosis: Pneumonia, unspecified organism;Dehydration;Type 2 diabetes mellitus with hyperglycemia;Chronic kidney disease, stage 3 (moderate)-with MARTA 1.15 ->1.44 Presentation: 06/17 13:20 Chief complaint: Pt's family reports pt having SOB and they checked her blood sugar and aa5 it read "high". 13:20 Coronavirus screen: shortness of breath. Ebola Screen: Patient denies travel to an [facility] Ebola-affected area in the 21 days before illness onset. Initial Sepsis Screen: Does the patient meet any 2 criteria? RR > 20 per min. HR > 90 bpm. Does the patient have a suspected source of infection? Yes: Productive cough/pneumonia. Risk Assessment: Do you want to hurt yourself or someone else? Patient reports no desire to harm self or others. Onset of symptoms was June 17, 2023. 13:20 Acuity: YARITZA 1 aa5 13:20 Method Of Arrival: Wheelchair aa5 Triage Assessment: 14:48 General: Appears in no apparent distress. uncomfortable, Behavior is calm, cooperative. cm10 Pain: Denies pain. Neuro: No deficits noted. Level of Consciousness is awake, alert, obeys commands, Oriented to person, place, time, situation. Cardiovascular: No deficits noted. Patient's skin is warm and dry. Rhythm is regular. Respiratory: Reports shortness of breath on exertion cough that is Airway is patent Respiratory effort is even, unlabored, Respiratory pattern is regular, symmetrical, Breath sounds with wheezes bilaterally. Onset: The symptoms/episode began/occurred gradually, the patient has moderate shortness of breath. GI: No deficits noted. No signs and/or symptoms were reported involving the gastrointestinal system. : No deficits noted. No signs and/or symptoms were reported regarding the genitourinary system. Derm: No deficits noted. No signs and/or symptoms reported regarding the dermatologic system. Skin is intact, Skin is pink, warm \\T\\ dry. Musculoskeletal: No deficits noted. Range of motion: intact in all extremities. Historical: - Allergies: 13:30 No Known Allergies; aa5 - PMHx: 13:30 Hyperlipidemia; Hypertension; Myocardial infarction; Diabetes mellitus; aa5 - PSHx: 13:30 heart cath; aa5 - Immunization history:: Adult Immunizations up to date. - Social history:: Smoking status: Patient denies any tobacco usage or history of. Screenin:49 [facility] ED Fall Risk Assessment (Adult) History of falling in the last 3 months, cm10 including since admission No falls in past 3 months (0 pts) Confusion or Disorientation No (0 pts) Intoxicated or Sedated No (0 pts) Impaired Gait No (0 pts) Mobility Assist Device Used No (0 pt) Altered Elimination No (0 pt) Score/Fall Risk Level 0 - 2 = Low Risk Oriented to surroundings, Maintained a safe environment, Provided non-skid footwear. Abuse screen: Denies threats or abuse. Denies injuries from another. Nutritional screening: No deficits noted. Tuberculosis screening: No symptoms or risk factors identified. Assessment: 14:47 Reassessment: Pt ambulated back to restroom and O2 sat decreased to 68% on RA. Pt cm10 placed back on NC at 5L and O2 sat improved to 100%. 15:30 Reassessment: Patient appears in no apparent distress at this time. Patient and/or cm10 family updated on plan of care and expected duration. Pain level reassessed. Patient is alert, oriented x 3, equal unlabored respirations, skin warm/dry/pink. 16:30 Reassessment: Patient appears in no apparent distress at this time. Patient and/or cm10 family updated on plan of care and expected duration. Pain level reassessed. Patient is alert, oriented x 3, equal unlabored respirations, skin warm/dry/pink. 18:00 Reassessment: Patient appears in no apparent distress at this time. Patient and/or cm10 family updated on plan of care and expected duration. Pain level reassessed. Patient is alert, oriented x 3, equal unlabored respirations, skin warm/dry/pink. 19:00 Reassessment: Patient appears in no apparent distress at this time. Patient and/or cm10 family updated on plan of care and expected duration. Pain level reassessed. Patient is alert, oriented x 3, equal unlabored respirations, skin warm/dry/pink. 20:30 Reassessment: Pt resting comfortably. Family at bedside. cm10 21:07 Reassessment: Attempted to call report, nurse unavailable. cm10 Vital Signs: 13:20 BP 164 / 90; Pulse 130; Resp 26 S; Temp 98.3(O); Pulse Ox 78% on R/A; aa5 13:25 Pulse Ox 100% on 3 lpm NC; aa5 16:15 BP 194 / 78; Pulse 72; Resp 18; Pulse Ox 100% on 3 lpm NC; cm10 18:09 BP 179 / 77; Pulse 76; Resp 18; Pulse Ox 97% on 3 lpm NC; cm10 ED Course: 13:17 Patient arrived in ED. ts1 13:20 Shaylee Bolden FNP-C is PHCP. snw 13:20 Bar Chaudhary MD is Attending Physician. snw 13:20 Arm band placed on. aa5 13:43 Triage completed. aa5 13:59 Inserted saline lock: 20 gauge in right forearm, using aseptic technique. Blood ls5 collected. 13:59 Troponin HS Sent. ls5 13:59 PT-INR Sent. ls5 13:59 NT PRO-BNP Sent. ls5 13:59 Magnesium Sent. ls5 13:59 LFT's Sent. ls5 13:59 CBC with Diff Sent. ls5 13:59 Basic Metabolic Panel Sent. ls5 14:25 XRAY Chest (1 view) In Process Unspecified. EDMS 14:46 Nicol Quispe, RN is Primary Nurse. cm10 14:49 Patient has correct armband on for positive identification. Bed in low position. Call cm10 light in reach. Side rails up X2. Provided Education on: ER process and procedures. . Client placed on continuous cardiac and pulse oximetry monitoring. NIBP monitoring applied. 15:13 Eric Farnsworth is Hospitalizing Provider. snw 15:54 CT Chest Wo Con In Process Unspecified. EDMS 16:57 Inserted saline lock: 20 gauge in left antecubital area, using aseptic technique. Blood ls5 collected. 21:07 No provider procedures requiring assistance completed. Patient admitted, IV remains in cm10 place. Administered Medications: 14:36 Drug: Aspirin PO Chewable Tablet 324 mg PO once; 81 mg tablets x 4 Route: PO; cm10 21:37 Follow up: Response: No adverse reaction cm10 16:37 Drug: NS 0.9% IV 750 ml IV at bolus continuous Route: IV; Rate: bolus; Site: left cm10 antecubital; 18:15 Follow up: Response: No adverse reaction; IV Status: Completed infusion; IV Intake: cm10 750ml 16:37 Drug: Piperacillin-Tazobactam IVPB 3.375 grams IVPB once over 60 mins; (mix in NS 100 cm10 mL) Route: IVPB; Infused Over: 60 mins; Site: left antecubital; 18:15 Follow up: Response: No adverse reaction; IV Status: Completed infusion cm10 16:56 CANCELLED (Physician Discretion): insulin regular human10 units IVP once snw 18:34 Drug: NS 0.9% IV 250 ml IV at bolus once Route: IV; Rate: bolus; Site: right forearm; cm10 21:37 Follow up: Response: No adverse reaction; IV Status: Completed infusion; IV Intake: cm10 250ml 18:34 Drug: NS 0.9% IV 1000 ml IV at 75 ml/hr continuous Route: IV; Rate: 75 ml/hr; Site: cm10 right forearm; 21:37 Follow up: Response: No adverse reaction; IV Status: Infusion continued upon transfer cm10 Medication: 14:49 VIS not applicable for this client. cm10 Intake: 18:15 IV: 750ml; Total: 750ml. cm10 21:37 IV: 250ml; Total: 1000ml. cm10 Outcome: 15:15 Decision to Hospitalize by Provider. snw 21:09 Admitted to Tele accompanied by tech, via stretcher, cm10 21:09 Condition: good cm10 21:54 Patient left the ED. lg3 Signatures: Dispatcher [employer] EDShaylee Morrison, MAGAZINE PUBLISHER-C MAGAZINE PUBLISHER-Csnw Yadi Ribeiro, RN RN aa5 Any Vaughan RN RN lg3 Fito Wang5 Grace Kay PAS PAS ts1 Nicol Quispe, PAULO RN cm10
--- NOTE | 2023-06-17 16:28 | RAD REPORT ---
EXAM DESCRIPTION: CT - Thorax Wo Con - 06/17/2023 3:52 pm CLINICAL HISTORY: sob COMPARISON: Chest x-ray June 17, [address] chest TECHNIQUE: Computed axial tomography of the chest was obtained. Contrast was not requested. All CT scans are performed using dose optimization technique as appropriate and may include automated exposure control or mA/KV adjustment according to patient size. FINDINGS: The evaluation of mediastinum, priscila and vessels is limited secondary to lack of IV contras t administration. Mild to moderate left upper lobe consolidation. Small left lower lobe consolidation. Mild additional reticulonodular opacities left lung. A few chronic reticulonodular opacities right lung. A calcified mediastinal lymph nodes. No hilar lymphadenopathy. Coronary arterial calcifications A pleural effusion is not present. A pericardial effusion is not present. Small pericardial effusion IMPRESSION: Mild to moderate consolidation left upper lobe and mild left lower lobe consolidations p robably pneumonia
--- NOTE | 2023-06-17 16:55 | P.HP ---
Certification for Inpatient Patient admitted to: Inpatient With expected LOS: >2 Midnights Patient will require the following post-hospital care: None Practitioner: I am a practitioner with admitting privileges, knowledge of patient current condition, hospital course, and medical plan of care. Services: Services provided to patient in accordance with Admission requirements found in Title 42 Section 412.3 of the Code of Federal Regulations Patient History Date of Service: 06/17/23 Reason for admission: Pneumonia, hypoxia History of Present Illness: 83-year-old female with history of hypertension, CAD, ica-lobxlcg-tmdgdotyf diabetes presents emergency department chief complaint of shortness of breath, cough. She is here visiting from [place], she got here about a week ago and was already sick when she showed up. Family denies any ill contacts, patient has not been on antibiotics or steroids recently. She was evaluated in the emergency department her labs are significant for white blood cell count 10.9 sodium 131 potassium 5.5 chloride 93 bicarb 34 creatinine 1.44 GFR 36 glucose 573 lactic acid 1.0 BNP 5176 COVID and influenza/RSV negativ e CT chest without contrast was performed which revealed mild to moderate consolidation left upper lobe and mild left lower lobe consolidations probably pneumonia. Patient was treated with IV antibioticsZosyn in ED, will admit for further valuation management of pneumonia, hyperglycemia, MARTA, acute hypoxic respiratory failure. Allergies No Known Allergies Allergy (Verified 04/06/19 00:00) Home Medications: Aspirin Chewable [Aspirin Chewable*] 1 tab PO DAILY 04/06/19 Clopidogrel Bisulfate [Plavix*] 1 tab PO DAILY 04/06/19 Felodipine [Plendil] 1 tab PO DAILY 04/06/19 Omeprazole 1 tab PO DAILY 04/06/19 Azithromycin 500 mg PO DAILY #7 tablet 04/07/19 - Past Medical/Surgical History Diabetic: Yes -: CAD -: Hypertension -: Hyperlipidemia -: DM 2 -: heart cath Psychosocial/ Personal History: Lives at home, in [place] with family - Family History Father Notes: denies Mother Notes: denies - Social History Smoking Status: Never smoker Alcohol use: No CD- Drugs: No Caffeine use: No Place of Residence: Home Review of Systems 10-point ROS is otherwise unremarkable General: Fever Respiratory: Cough, Shortness of Breath Physical Examination - Physical Exam General: Alert, In no apparent distress, Oriented x3 HEENT: Atraumatic, PERRLA, EOMI Neck: Supple, 2+ carotid pulse no bruit, No LAD Respiratory: Normal air movement, Diminished, Rhonchi/gurgles Cardiovascular: Regular rate/rhythm, Normal S1 S2 Capillary refill: <2 Seconds Gastrointestinal: Normal bowel sounds, No tenderness Musculoskeletal: No tenderness Integumentary: No rashes Neurological: Normal speech, Normal strength at 5/5 x4 extr, Normal tone, Normal affect Lymphatics: No axilla or inguinal lymphadenopathy - Studies Laboratory Data (last 24 hrs) 06/17/23 06/17/23 06/17/23 13:52 13:52 13:52 WBC 10.90 Hgb 12.1 Hct 36.6 Plt Count 276 PT 11.9 INR 1.08 Sodium 131 L Potassium 5.5 H BUN 25 H Creatinine 1.44 H Glucose 573 H* Magnesium 1.6 Total Bilirubin 0.3 AST 17 ALT 19 Alkaline Phosphatase 174 H Assessment and Plan - Plan Assessment: Sepsis secondary to left upper and left mid lung pneumonia Acute hypoxic respiratory failure Diabetes mellitus type 1srd-rjpldzq-ousnqjtmz with hyperglycemia Acute kidney injury with mild hyperkalemia Hypertension CAD Plan: Sepsis secondary to left upper and left mid lung pneumonia Acute hypoxic respiratory failure Continue broad-spectrum antibiotics Blood cultures obtained in ED, lactate 1, no hypotension Supplemental oxygen as needed, wean as tolerated Diabetes mellitus type 3xtb-hiftixp-pwimnrdyl with hyperglycemia ACHS Accu-Chek, sliding scale insulin, A1c in the morning Hold metformin given MARTA Acute kidney injury with mild hyperkalemia Hold metformin, continue IV fluids overnight repeat chemistry tonight Hypertension CAD Home medications continued DVT PPX: Heparin subcu Code status: Full Discharge Plan: Home Plan to discharge in: Greater than 2 days - Advance Directives Does patient have a Living Will: No Does patient have a Durable POA for Healthcare: No - Code Status/Comfort Care Code Status Assessed: Yes (Full code) Critical Care: No Time Spent Managing Pts Care (In Minutes): 70
[2023-06-17] MEDS ORDERED: NA CHLORIDE 0.9% 1,000 ML ONE (18:18)
[2023-06-17] MEDS ORDERED: ALBUTEROL 2.5 MG/3 ML NEB SOL NEB PRN (22:08)
[2023-06-17] MEDS: ISOSORBIDE DINIT 5 MG TAB PO SCH (22:08)
[2023-06-17] MEDS ORDERED: ONDANSETRON 4 MG/2 ML VIAL IV PRN (22:08)
[2023-06-17] MEDS ORDERED: IPRATROPIUM BROM 0.5MG/2.5ML NEB PRN (22:08)
[2023-06-17] MEDS ORDERED: ISOSORBIDE DINIT 20 MG TAB ONE (22:40)
[2023-06-17 22:46] LABS: Potassium 4.9 mEq/L (3.5-5.1)
[2023-06-17] MEDS: INSULIN REGULAR (HUMAN) 100 UNIT/ML SQ SCH (22:47)
[2023-06-17] MEDS: METOPROLOL TAR 50 MG TAB PO SCH (22:47)
[2023-06-17] MEDS: HEPARIN 5000 UNIT/ML 1 ML VIAL SQ SCH (22:47)
[2023-06-17] MEDS: NA CHLORIDE 0.9% 1,000 ML IV SCH (22:48)
[2023-06-18] MEDS: HYDRALAZINE HCL 20 MG/ML VIAL IV PRN (06:13)
[2023-06-18 06:32] LABS: Absolute Lymphocytes (CBC) 1.1 K/uL (0.7-4.9); Hematocrit 32.2 % (36.0-45.0); MCV 91.2 fL (80-100); Platelets 268 thou/uL (152-406); RBC Red Blood Cell Count 3.53 M/uL (3.86-4.86)
[2023-06-18 06:47] LABS: Magnesium 1.5 mg/dL (1.6-2.4); Potassium 4.9 mEq/L (3.5-5.1); Thyroid Stimulating Hormone 1.45 uIU/mL (0.358-3.740)
[2023-06-18] MEDS: INSULIN REGULAR (HUMAN) 100 UNIT/ML SQ SCH ×4 (07:30→21:15)
[2023-06-18] MEDS ORDERED: PNEUMOCOCCAL VACCINE 0.5 ML IMVAC ONE (08:00)
[2023-06-18] MEDS ORDERED: INFLUENZA VACCINE (for 6+ mo) 0.5 ML DOSE IMVAC ONE (08:00)
[2023-06-18] MEDS: CEFTRIAXONE 1,000 MG in NA CHLORIDE 0.9% 50 ML IVPB SCH (08:46)
[2023-06-18] MEDS: HEPARIN 5000 UNIT/ML 1 ML VIAL SQ SCH ×2 (08:47→22:20)
[2023-06-18] MEDS: AZITHROMYCIN IV 500 MG in NA CHLORIDE 0.9% 250 ML IVPB SCH (08:47)
[2023-06-18] MEDS: ISOSORBIDE DINIT 5 MG TAB PO SCH ×2 (08:47→21:14)
[2023-06-18] MEDS: CLOPIDOGREL 75 MG TABLET PO SCH (08:47)
[2023-06-18] MEDS: ASPIRIN EC 81 MG TAB PO SCH (08:48)
[2023-06-18] MEDS: METOPROLOL TAR 50 MG TAB PO SCH ×2 (08:48→21:14)
[2023-06-18] MEDS: NA CHLORIDE 0.9% 1,000 ML IV SCH (08:49)
--- NOTE | 2023-06-18 10:24 | P.PN ---
Date of Service: 06/18/23 Subjective: No acute events overnight Persistent cough ROS: 10 point ROS as noted above, otherwise negative Physical exam GEN: Alert, oriented, NAD HEENT: Normal conjunctiva, sclera anicteric CV: Regular rate and rhythm, no edema Pulm: Nonlabored respirations nasal cannula oxygen2 L ABD: Soft, nontender, nondistended MSK: No joint tenderness Integumentary: No rashes Neuro: Normal speech, normal affect Vitals reviewed Assessment: Sepsis secondary to left upper and left mid lung pneumonia Acute hypoxic respiratory failure Diabetes mellitus type 9rpj-xztrtqv-vncexycsk with hyperglycemia Acute kidney injury with mild hyperkalemia Hypertension CAD Plan: Sepsis secondary to left upper and left mid lung pneumonia Acute hypoxic respiratory failure Continue broad-spectrum antibiotics Blood cultures pending continue to follow lactate 1, no hypotension Supplemental oxygen as needed, wean as tolerated Diabetes mellitus type 1xoq-hjtzhqp-xghvzlrdx with hyperglycemia ACHS Accu-Chek, sliding scale insulin A1c 10.4 Blood sugar improved Hold metformin given MARTA Acute kidney injury with mild hyperkalemia Hold metformin, continue IV fluids overnight Renal function, potassium improved/normalized continue IV fluids Hypertension CAD Home medications continued DVT PPX: Heparin subcu Code status: Full Discharge Plan: Home Plan to discharge in: Greater than 2 days Time Spent Managing Pts Care (In Minutes): 35 <Fuentes Red - Last Filed: 06/18/23 10:22> Patient seen and examined on rounds this morning. Reviewed plan of care with ESTATE ATTORNEY Teofilo. improving, continues with frequent cough, feels like gets stuck at base of throat no nausea/vomiting, minimal appetite ambulated in room today no new/worsening symptoms continue antibiotics anticipate dc home in ~2 days <Hector Chaudhary - Last Filed: 06/18/23 20:04>
[2023-06-18] MEDS: BENZONATATE 100 MG CAP PO PRN (21:20)
[2023-06-19] MEDS: NA CHLORIDE 0.9% 1,000 ML IV SCH (00:16)
[2023-06-19] MEDS: HYDRALAZINE HCL 20 MG/ML VIAL IV PRN (05:36)
[2023-06-19] MEDS: INSULIN REGULAR (HUMAN) 100 UNIT/ML SQ SCH ×4 (07:30→22:05)
[2023-06-19 08:15] LABS: Absolute Lymphocytes (CBC) 1.8 K/uL (0.7-4.9); Hematocrit 32.6 % (36.0-45.0); Lymphocytes % 16.4 % (15.3-44.8); MPV 8.7 fL (7.6-11.3); Platelets 296 thou/uL (152-406); RBC Red Blood Cell Count 3.58 M/uL (3.86-4.86)
[2023-06-19 08:27] LABS: Magnesium 1.7 mg/dL (1.6-2.4); Potassium 5.3 mEq/L (3.5-5.1)
[2023-06-19] MEDS ORDERED: FUROSEMIDE 40 MG/4 ML VIAL IV SCH (09:00)
--- NOTE | 2023-06-19 09:59 | P.PN ---
Date of Service: 06/19/23 Subjective: No acute events overnight Persistent cough working well with PT ROS: 10 point ROS as noted above, otherwise negative Physical exam GEN: Alert, oriented, NAD HEENT: Normal conjunctiva, sclera anicteric CV: Regular rate and rhythm, no edema Pulm: Nonlabored respirations nasal cannula oxygen2 L ABD: Soft, nontender, nondistended MSK: No joint tenderness Integumentary: No rashes Neuro: Normal speech, normal affect Vitals reviewed Assessment: Sepsis secondary to left upper and left mid lung pneumonia Acute hypoxic respiratory failure Diabetes mellitus type 7ygg-kjfnswh-tnpqrbxiy with hyperglycemia Acute kidney injury with mild hyperkalemia Hypertension CAD Plan: Sepsis secondary to left upper and left mid lung pneumonia Acute hypoxic respiratory failure Continue broad-spectrum antibiotics Blood cultures NGTD lactate 1, no hypotension Supplemental oxygen as needed, wean as tolerated Diabetes mellitus type 8gqk-hkhbove-kqygmunsm with hyperglycemia ACHS Accu-Chek, sliding scale insulin A1c 10.4 Blood sugar improved Hold metformin given MARTA Acute kidney injury with mild hyperkalemia Hold metformin, continue IV fluids overnight cr increased again, k5.3 will conult nephrology continue gently IVF Hypertension CAD Home medications continued DVT PPX: Heparin subcu Code status: Full Discharge Plan: Home Plan to discharge in: 24-28 hours Time Spent Managing Pts Care (In Minutes): 35
[2023-06-19] MEDS ORDERED: NA CHLORIDE 0.9% 1,000 ML IV SCH (10:00)
[2023-06-19] MEDS: CEFTRIAXONE 1,000 MG in NA CHLORIDE 0.9% 50 ML IVPB SCH (10:08)
[2023-06-19] MEDS: AZITHROMYCIN IV 500 MG in NA CHLORIDE 0.9% 250 ML IVPB SCH (10:09)
[2023-06-19] MEDS: HEPARIN 5000 UNIT/ML 1 ML VIAL SQ SCH ×2 (10:09→22:05)
[2023-06-19] MEDS: ISOSORBIDE DINIT 5 MG TAB PO SCH ×2 (10:09→22:04)
[2023-06-19] MEDS: ASPIRIN EC 81 MG TAB PO SCH (10:09)
[2023-06-19] MEDS: CLOPIDOGREL 75 MG TABLET PO SCH (10:09)
[2023-06-19] MEDS: METOPROLOL TAR 50 MG TAB PO SCH ×2 (10:09→22:04)
[2023-06-19 14:23] LABS: Potassium 5.8 mEq/L (3.5-5.1)
--- NOTE | 2023-06-19 15:39 | CON ---
Date of Consultation: 06/19/2023 Reason For Consultation: Elevated BUN and creatinine, fluid management. History Of Present Illness: This is an 83-year-old female with significant past medical history of d iabetes since 1999, complicated with neuropathy, no retinopathy, CAD, status post cardiac cath, no st enting, hypertension since 2004, patient came to the hospital complaining from shortness of breath, i ncreased gradually over the last couple of weeks. Upon arrival to the hospital, patient found to hav e elevation in BUN and creatinine with hyponatremia and hyperkalemia. For that reason, we have been consulted. Patient also has hyperglycemia. Patient was started on hydration. The patient's kidney function continued to decline. For that reason, we have been consulted. Patient is still requiring oxygenation. Past Medical History: Includes: 1.Hypertension since 2004. 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 3.Hyperlipidemia. 4.CAD, status post cardiac cath back in 2009. Allergies: NO KNOWN DRUGS ALLERGY. Home Medications: Include aspirin, Plavix, felodipine, omeprazole, azithromycin. Past Surgical History: Include cardiac cath back in 2009. Family History: Positive for diabetes and hypertension. Social History: Denied smoking. Denied drinking. Denied drugs abuse. Review of Systems: Head and Neck: No red eye. No ear pain. GI: No nausea. No vomiting. : No polyuria. No dysuria. No hematuria. ELECTRONIC TECH: No vaginal discharge. Respiratory: Has shortness of breath. Cardiovascular: Has orthopnea. Endocrine: No polydipsia. Skin: No rash. Neuro: Has neuropathy. Musculoskeletal: No joint pain. Physical Examination: General: When I saw the patient, patient lying in bed, on nasal cannula. Vital Signs: Blood pressure 177/81, pulse of 77, afebrile. Chest: Crackles, bilateral base. Heart: S1, S2. Regular. Abdomen: Soft, nontender. Extremities: Trace edema. Neurologic: Alert. No focality. Laboratory Data: WBC 11, hemoglobin 10.8, sodium 132, potassium 5.8, bicarb 28, BUN 42, creatinine 1 .7, GFR 28, calcium 9.2. Chest x-ray, no cardiomegaly but congestion bilaterally. Current Medications: The patient on, include aspirin, azithromycin, ceftriaxone, albuterol, Plavix, normal saline, Zofran. Assessment And Plan: 1.Acute kidney injury secondary to cardiorenal, look to me still on the overvolume side. I am going to go ahead and discontinue IV fluid, start the patient on Lasix and we will monitor the patient hugo sely and we will follow up. I am going to send for basic workup for the patient. 2.Hypertension, not controlled, with the presence of acute kidney injury and cardiorenal. Add nitro glycerin. Add Lasix. Discontinue IV fluid. Continue isosorbide. Please avoid any SAMANTHA inhibitor or ARB for the time being. 3.Diabetes, as by primary. 4.Questionable atypical pneumonia, as by primary. We will follow up. 5.Coronary artery disease with congestive heart failure with exacerbation. Consider Cardiology eval uation. We will optimize the fluid status for the patient with the diuresis and we will monitor. Thank you, Dr. Chaudhary, for allowing us to participate in the care of your patient. Time spent examini ng the patient [id number], reviewing data, lab and radiology, placing order, discussing the case wi th the patient, discussing the case with the daughter by bedside, discussing the case with the hospit alist and nursing staff more than 75 minutes. LINA Voice ID: [id number] Report ID: [id number]
[2023-06-19] MEDS: FUROSEMIDE 40 MG/4 ML VIAL IV SCH (16:05)
--- NOTE | 2023-06-19 20:40 | RAD REPORT ---
EXAM DESCRIPTION: US - Renal Ultrasound-Complete - 06/19/2023 8:25 pm CLINICAL HISTORY: MARTA Flank pain COMPARISON: No comparisons FINDINGS: The kidneys appear mildly echogenic, particularly the right kidney, compatible with underl rudolph medical renal disease. The right kidney measures 8.6 x 3.9 x 3.5 cm. No hydronephrosis, focal mass or perinephric fluid. The left kidney measures 8.6 x 4.4 x 3.1 cm. No hydronephrosis, focal mass or perinephric fluid. The urinary bladder is incompletely distended and not well assessed. IMPRESSION: Mildly echogenic kidneys suggesting underlying medical renal disease.
[2023-06-20] MEDS: HYDRALAZINE HCL 20 MG/ML VIAL IV PRN ×2 (05:49→15:56)
[2023-06-20] MEDS: INSULIN REGULAR (HUMAN) 100 UNIT/ML SQ SCH ×4 (07:30→21:14)
[2023-06-20 08:19] LABS: Absolute Lymphocytes (CBC) 1.5 K/uL (0.7-4.9); Hematocrit 32.7 % (36.0-45.0); Lymphocytes % 17.3 % (15.3-44.8); MCV 91.4 fL (80-100); MPV 8.7 fL (7.6-11.3); Platelets 321 thou/uL (152-406); RBC Red Blood Cell Count 3.58 M/uL (3.86-4.86)
[2023-06-20] MEDS: METOPROLOL TAR 50 MG TAB PO SCH ×2 (08:20→21:14)
[2023-06-20] MEDS: ISOSORBIDE DINIT 5 MG TAB PO SCH ×2 (08:20→21:15)
[2023-06-20] MEDS: AZITHROMYCIN IV 500 MG in NA CHLORIDE 0.9% 250 ML IVPB SCH (08:20)
[2023-06-20] MEDS: HEPARIN 5000 UNIT/ML 1 ML VIAL SQ SCH ×2 (08:20→21:14)
[2023-06-20] MEDS: ASPIRIN EC 81 MG TAB PO SCH (08:21)
[2023-06-20] MEDS: CEFTRIAXONE 1,000 MG in NA CHLORIDE 0.9% 50 ML IVPB SCH (08:21)
[2023-06-20] MEDS: CLOPIDOGREL 75 MG TABLET PO SCH (08:21)
[2023-06-20] MEDS: FUROSEMIDE 40 MG/4 ML VIAL IV SCH (08:21)
[2023-06-20 08:50] LABS: Blood Morphology Comment NOT SEEN (NOT SEEN); Platelet Estimate ADEQ; White Blood Cell Scan OK (OK)
[2023-06-20 09:08] LABS: Albumin 2.4 g/dL (3.4-5.0); Magnesium 1.7 mg/dL (1.6-2.4); Phosphorus 4.6 mg/dL (2.5-4.9); Potassium 4.7 mEq/L (3.5-5.1); Thyroid Stimulating Hormone 1.39 uIU/mL (0.358-3.740); Uric Acid 6.2 mg/dL (2.6-6.0)
--- NOTE | 2023-06-20 09:41 | P.PN ---
Date of Service: 06/20/23 Subjective: No acute events overnight Started on IV diuresis by nephrology ROS: 10 point ROS as noted above, otherwise negative Physical exam GEN: Alert, oriented, NAD HEENT: Normal conjunctiva, sclera anicteric CV: Regular rate and rhythm, no edema Pulm: Nonlabored respirations nasal cannula oxygen2 L ABD: Soft, nontender, nondistended MSK: No joint tenderness Integumentary: No rashes Neuro: Normal speech, normal affect Vitals reviewed Assessment: Sepsis secondary to left upper and left mid lung pneumonia Acute hypoxic respiratory failure Diabetes mellitus type 8bwr-btetlob-dbgunorhs with hyperglycemia Acute kidney injury with mild hyperkalemia Hypertension CAD Plan: Sepsis secondary to left upper and left mid lung pneumonia Acute hypoxic respiratory failure Continue Rocephin/Zithromax Blood cultures NGTD lactate 1, no hypotension Supplemental oxygen as needed, wean as tolerated-currently on 2 to 3 L per nasal cannula Working well with physical therapy Diabetes mellitus type 5yms-beceetq-vpntxbsvc with hyperglycemia ACHS Accu-Chek, sliding scale insulin A1c 10.4 Blood sugar improved Hold metformin given MARTA Acute kidney injury with mild hyperkalemia Seen by nephrology who feel patient is overloaded Given IV Lasix, hyperkalemia improved, no significant change in renal function yet Monitor chemistry daily Hypertension CAD Home medications continued DVT PPX: Heparin subcu Code status: Full Discharge Plan: Home Plan to discharge in: 48 to 72 hours hours Time Spent Managing Pts Care (In Minutes): 35
--- NOTE | 2023-06-20 10:51 | RAD REPORT ---
EXAM DESCRIPTION: RAD - Chest Single View - 06/20/2023 10:44 am CLINICAL HISTORY: f/u opacities COMPARISON: Chest Single View dated 06/17/2023; Chest Single View dated 04/05/2019; Renal Ultrasound-C omplete dated 06/19/2023; Thorax Wo Con dated 06/17/2023 FINDINGS: Lines: None. Lungs: Irregular airspace disease left upper lobe and left mid lung with mild improvement compared wi 06/17/2023. Pleural: No significant pleural effusions or pneumothorax. Cardiac: Similar size and configuration. Mediastinum: Within normal limits. Bones: No acute fractures. Other: None IMPRESSION: Improved, but not completely resolved, airspace disease in the left upper lobe and left mid lung.
[2023-06-20] MEDS ORDERED: MAGNESIUM SULFATE 1 gm IVPB 1 GM/100 ML BAG IV ONE (11:14)
--- NOTE | 2023-06-20 12:13 | PN ---
Date of Progress Note: 06/20/2023 Subjective: The patient was admitted to the hospital with acute kidney injury on chronic kidney dise ase. The patient was on the over volume side. The patient was started on diuresis. Physical Examination: Vital Signs: When I saw the patient, blood pressure of 175/74, pulse of 70, afebrile. Chest: Clear to auscultation. Heart: S1, S2. Systolic murmur. Abdomen: Soft, nontender. Extremities: No edema. Neurologic: Alert. No focality. Laboratory Data: Hemoglobin 10.7. Sodium 135, potassium 4.7, bicarb 28, BUN 53. Creatinine 1.7. U doretha acid 6.2, calcium 9.4, phosphorus 4.6. Iron saturation 33. Serum protein electrophoresis is sti ll pending. TSH 1.3, PTH 84. Current Medications: The patient on include: 1.Azithromycin. 2.Ceftriaxone. 3.Plavix. 4.Isosorbide. 5.Metoprolol. 6.Lasix 40. 7.Ensure. Assessment And Plan: 1.Acute kidney injury secondary to cardiorenal on advanced chronic kidney disease, currently looked to me on the normal volume side. I am going to switch Lasix to oral and we will monitor the patient. 2.Anemia secondary to chronic kidney disease. Serum protein electrophoresis is still pending. I do not see the need for GEORGIE. We will follow up. 3.Hyponatremia, dilutional. Continue diuresis. 4.Congestive heart failure with exacerbation. Switch Lasix as above. 5.Pneumonia as by primary. JOSE/OMARI Voice ID: [id number] Report ID: [id number]
[2023-06-21 08:18] LABS: Hematocrit 33.2 % (36.0-45.0); Lymphocytes % 10.5 % (15.3-44.8); MCV 90.6 fL (80-100); MPV 8.5 fL (7.6-11.3); Platelets 321 thou/uL (152-406); RBC Red Blood Cell Count 3.66 M/uL (3.86-4.86)
[2023-06-21 08:19] LABS: Absolute Lymphocytes (CBC) 0.7 K/uL (0.7-4.9)
[2023-06-21 08:34] LABS: Albumin 2.4 g/dL (3.4-5.0); Magnesium 1.9 mg/dL (1.6-2.4); Phosphorus 4.5 mg/dL (2.5-4.9); Potassium 4.6 mEq/L (3.5-5.1)
[2023-06-21] MEDS: INSULIN REGULAR (HUMAN) 100 UNIT/ML SQ SCH ×4 (09:15→20:24)
[2023-06-21] MEDS: HEPARIN 5000 UNIT/ML 1 ML VIAL SQ SCH ×2 (09:16→20:23)
[2023-06-21] MEDS: ASPIRIN EC 81 MG TAB PO SCH (09:16)
[2023-06-21] MEDS: CLOPIDOGREL 75 MG TABLET PO SCH (09:16)
[2023-06-21] MEDS: METOPROLOL TAR 50 MG TAB PO SCH ×2 (09:17→20:23)
[2023-06-21] MEDS: ISOSORBIDE DINIT 5 MG TAB PO SCH ×2 (09:17→20:27)
[2023-06-21] MEDS: FUROSEMIDE 40 MG TABLET PO SCH (09:17)
[2023-06-21] MEDS: CEFTRIAXONE 1,000 MG in NA CHLORIDE 0.9% 50 ML IVPB SCH (09:23)
[2023-06-21] MEDS: AZITHROMYCIN IV 500 MG in NA CHLORIDE 0.9% 250 ML IVPB SCH (09:30)
--- NOTE | 2023-06-21 10:02 | P.PN ---
Date of Service: 06/21/23 Subjective: No acute events overnight Poor oral intake ROS: 10 point ROS as noted above, otherwise negative Physical exam GEN: Alert, oriented, NAD HEENT: Normal conjunctiva, sclera anicteric CV: Regular rate and rhythm, no edema Pulm: Nonlabored respirations nasal cannula oxygen2 L ABD: Soft, nontender, nondistended MSK: No joint tenderness Integumentary: No rashes Neuro: Normal speech, normal affect Vitals reviewed Assessment: Sepsis secondary to left upper and left mid lung pneumonia Acute hypoxic respiratory failure Diabetes mellitus type 8oxc-nkldcrr-vptmxrrlw with hyperglycemia Acute kidney injury with mild hyperkalemia Hypertension CAD Plan: Sepsis secondary to left upper and left mid lung pneumonia Acute hypoxic respiratory failure Continue Rocephin Blood cultures NGTD lactate 1, no hypotension Supplemental oxygen as needed, wean as tolerated-currently on 2 to 3 L per nasal cannula Working well with physical therapy Diabetes mellitus type 2lmc-hyiejkt-qurvteper with hyperglycemia ACHS Accu-Chek, sliding scale insulin A1c 10.4 Blood sugar improved Hold metformin given MARTA Acute kidney injury with mild hyperkalemia Seen by nephrology who feel patient is overloaded Renal function stable creatinine around 1.7 On p.o. Lasix Nephrology following Monitor chemistry daily Hypertension CAD Home medications continued DVT PPX: Heparin subcu Code status: Full Discharge Plan: Home Plan to discharge in: 48 to 72 hours hours Time Spent Managing Pts Care (In Minutes): 35
[2023-06-21] MEDS: ENSURE ENLIVE 237 ML CAN PO SCH (13:31)
--- NOTE | 2023-06-21 13:53 | EKG ---
Test Date: 2023-06-17 Test Time: 14:31:14 Dining Service Inspector: REILLY MEASUREMENT RESULTS: Intervals: Rate: 81 RI: 224 QRSD: 78 QT: 352 QTc: 408 [place]: P: 71 RI: 224 QRS: -35 T: -18 INTERPRETIVE STATEMENTS: Sinus rhythm with 1st degree AV block with premature atrial complexes Left axis deviation Septal infarct, age undetermined Abnormal ECG Compared to ECG 04/05/2019 20:42:34 Atrial premature complex(es) now present First degree AV block now present Left-axis deviation now present Myocardial infarct finding still present Electronically Signed On 06-21-23 13:43:40 TEST DECK SUPERVISOR by Ventura Moreira
--- NOTE | 2023-06-21 15:15 | P.PN ---
Subjective Date of Service: 06/21/23 Chief Complaint: Pneumonia, hypoxia Subjective: No new changes Physical Examination - Vital Signs Temperature: 98.5 F Blood Pressure: 109/44 Pulse: 66 Respirations: 18 Pulse Ox (%): 92 - Physical Exam General: Other (appears as her stated age) HEENT: Atraumatic, Normocephalic Neck: Supple Respiratory: Other (symmetric chest expansion) Cardiovascular: No rubs, No murmurs Gastrointestinal: Soft and benign Musculoskeletal: No clubbing Integumentary: No warmth Neurological: Normal tone Urinary: Other (No bladder distention) External genitalia: Deferred Rectal: Deferred Assessment And Plan - Plan 1. Acute kidney injury secondary to cardiorenal on advanced chronic kidney disease. serum creatinine decreased to 1.7 today. Continue po lasix. [place] by mouth fluid intake. 2. Anemia secondary to chronic kidney disease. Monitor CBC. 3. Hyponatremia. Monitor. 4. Congestive heart failure with exacerbation. Lasix as above. [place] po fluid intake as above. Strict low Na diet < 2g/d. 5. Pneumonia. Per primary team.
[2023-06-21 22:56] VITALS: BMI 22.5
[2023-06-22] MEDS ORDERED: D50W 25 GM/50 ML SYRINGE IV ONE (01:37)
[2023-06-22] MEDS ORDERED: D10W 125 ML IV ONE (02:00)
[2023-06-22 09:27] LABS: Albumin 2.3 g/dL (3.4-5.0); Potassium 4.6 mEq/L (3.5-5.1)
[2023-06-22] MEDS: INSULIN REGULAR (HUMAN) 100 UNIT/ML SQ SCH ×4 (09:52→20:47)
[2023-06-22] MEDS: ISOSORBIDE DINIT 5 MG TAB PO SCH ×2 (09:53→20:46)
[2023-06-22] MEDS: FUROSEMIDE 40 MG TABLET PO SCH (09:54)
[2023-06-22] MEDS: HEPARIN 5000 UNIT/ML 1 ML VIAL SQ SCH ×2 (09:54→20:46)
[2023-06-22] MEDS: CEFTRIAXONE 1,000 MG in NA CHLORIDE 0.9% 50 ML IVPB SCH (09:54)
[2023-06-22] MEDS: ASPIRIN EC 81 MG TAB PO SCH (09:54)
[2023-06-22] MEDS: CLOPIDOGREL 75 MG TABLET PO SCH (09:54)
[2023-06-22] MEDS: METOPROLOL TAR 50 MG TAB PO SCH ×2 (09:54→20:46)
[2023-06-22] MEDS: ENSURE ENLIVE 237 ML CAN PO SCH (09:55)
[2023-06-22] MEDS: ACETAMINOPHEN 500 MG TAB PO PRN (11:02)
--- NOTE | 2023-06-22 11:47 | P.PN ---
Date of Service: 06/22/23 Subjective: No acute events overnight Poor oral intake Attempting to wean oxygen ROS: 10 point ROS as noted above, otherwise negative Physical exam GEN: Alert, oriented, NAD HEENT: Normal conjunctiva, sclera anicteric CV: Regular rate and rhythm, no edema Pulm: Nonlabored respirations nasal cannula oxygen2 L ABD: Soft, nontender, nondistended MSK: No joint tenderness Integumentary: No rashes Neuro: Normal speech, normal affect Vitals reviewed Assessment: Sepsis secondary to left upper and left mid lung pneumonia Acute hypoxic respiratory failure Diabetes mellitus type 2uyy-wwfalrg-ruzrwikkp with hyperglycemia Acute kidney injury with mild hyperkalemia Hypertension CAD Plan: Sepsis secondary to left upper and left mid lung pneumonia Acute hypoxic respiratory failure Continue Rocephin Blood cultures NGTD lactate 1, no hypotension Supplemental oxygen as needed, wean as tolerated-currently on 2 to 3 L per nasal cannula Working well with physical therapy Diabetes mellitus type 5qii-yhhyafv-ffkkrxfzj with hyperglycemia ACHS Accu-Chek, sliding scale insulin A1c 10.4 Blood sugar improved Hold metformin given MARTA Acute kidney injury with mild hyperkalemia Seen by nephrology who feel patient is overloaded Renal function stable creatinine around 1.7 On p.o. Lasix Nephrology following Monitor chemistry daily Hypertension CAD Home medications continued DVT PPX: Heparin subcu Code status: Full Discharge Plan: Home Plan to discharge in: 48 to 72 hours hours Time Spent Managing Pts Care (In Minutes): 35
--- NOTE | 2023-06-22 14:52 | PN ---
Date of Progress Note: 06/22/2023 Subjective: The patient was admitted with acute kidney injury secondary to cardiorenal. The patient being on diuresis, responding very well. Physical Examination: Vital Signs: Blood pressure 109/44, pulse of 66, afebrile. Chest: Clear to auscultation. Heart: S1, S2 regular. Abdomen: Soft, nontender. Extremities: No edema. Lab: Hemoglobin 10.9. Sodium 134, potassium 4.6, bicarb 33, BUN 67, creatinine 1.7, calcium 9.4. Current Medications: Include: 1.Aspirin. 2.Albuterol. 3.Plavix. 4.Isosorbide. 5.Metoprolol 100 b.i.d. 6.Lasix 40 daily. Assessment And Plan: 1.Acute kidney injury secondary to cardiorenal, normal size kidney, minimal proteinuria. Maintainin g good on current diuresis dose. We will continue to monitor. 2.Hypertension, controlled, optimal, continue current treatment. 3.Secondary hyperpara, stable. 4.CHF with exacerbation. Continue current diuresis dose. Will follow up with Cardiology. LINA Voice ID: [id number] Report ID: [id number]
[2023-06-22 17:14] LABS: Urine Bacteria None Seen /HPF (<20); Urine Mucus Slight /HPF (None Seen); Urine RBC <5 /HPF (None Seen)
[2023-06-22 17:20] LABS: Specific Gravity 1.012 (1.005-1.030); Urine Bilirubin NEGATIVE (Negative); Urine Blood Negative (Negative); Urine Clarity Turbid (Clear); Urine Color Light-Yellow (Yellow); Urine Glucose NEGATIVE (Negative); Urine Protein TRACE (Negative); Urine Urobilinogen Normal (Normal)
[2023-06-23] MEDS: INSULIN REGULAR (HUMAN) 100 UNIT/ML SQ SCH ×4 (07:30→20:29)
[2023-06-23] MEDS: METOPROLOL TAR 50 MG TAB PO SCH ×2 (08:00→20:27)
[2023-06-23] MEDS: HEPARIN 5000 UNIT/ML 1 ML VIAL SQ SCH ×2 (08:00→20:29)
[2023-06-23] MEDS: CLOPIDOGREL 75 MG TABLET PO SCH (08:01)
[2023-06-23] MEDS: ISOSORBIDE DINIT 5 MG TAB PO SCH ×2 (08:01→20:28)
[2023-06-23] MEDS: ASPIRIN EC 81 MG TAB PO SCH (08:01)
[2023-06-23] MEDS: FUROSEMIDE 40 MG TABLET PO SCH (08:01)
[2023-06-23] MEDS: ENSURE ENLIVE 237 ML CAN PO SCH (08:11)
[2023-06-23 08:17] LABS: Albumin 2.3 g/dL (3.4-5.0); Potassium 4.7 mEq/L (3.5-5.1)
--- NOTE | 2023-06-23 10:56 | P.PN ---
Date of Service: 06/23/23 Subjective: No acute events overnight improving appetite, cough attempting to wean oxygen ROS: 10 point ROS as noted above, otherwise negative Physical exam GEN: Alert, oriented, NAD HEENT: Normal conjunctiva, sclera anicteric CV: Regular rate and rhythm, no edema Pulm: Nonlabored respirations nasal cannula oxygen2 L ABD: Soft, nontender, nondistended MSK: No joint tenderness Integumentary: No rashes Neuro: Normal speech, normal affect Vitals reviewed Assessment: Sepsis secondary to left upper and left mid lung pneumonia Acute hypoxic respiratory failure Diabetes mellitus type 4pwv-kkamzau-iekapygtb with hyperglycemia Acute kidney injury with mild hyperkalemia Hypertension CAD Plan: Sepsis secondary to left upper and left mid lung pneumonia Acute hypoxic respiratory failure Completed 4 days IV zithromax, 6 days IV rocephin Improving, less cough/dyspnea Blood cultures NGTD lactate 1, no hypotension Supplemental oxygen as needed, wean as tolerated-currently on 2 to 3 L per nasal cannula Working well with physical therapy appetite improving Diabetes mellitus type 8mku-hjenggf-hegejuvrq with hyperglycemia ACHS Accu-Chek, sliding scale insulin A1c 10.4 Blood sugar improved Hold metformin given MARTA Acute kidney injury with mild hyperkalemia Seen by nephrology who feel patient is overloaded Renal function stable creatinine around 1.7 On p.o. Lasix Nephrology following Monitor chemistry daily Hypertension CAD Home medications continued DVT PPX: Heparin subcu Code status: Full Discharge Plan: Home Plan to discharge in: 24 to 48 hours hours Time Spent Managing Pts Care (In Minutes): 35
[2023-06-23] MEDS ORDERED: FUROSEMIDE 40 MG/4 ML VIAL IV ONE (11:00)
--- NOTE | 2023-06-23 11:43 | PN ---
Date of Progress Note: 06/23/2023 Subjective: The patient was admitted to the hospital with acute kidney injury secondary to cardioren al. The patient has been diuresed very well. The patient still requiring oxygen, but better than be fore. Objective: Vital Signs: Blood pressure 154/70, pulse of 64, afebrile. Chest: Crackles bilateral base. Heart: S1, S2 regular. Abdomen: Soft, nontender. Extremities: No edema. Neurologic: No focality. Laboratory Data: Hemoglobin 9.9. Sodium 134, potassium 4.7, bicarb 31, BUN 63, creatinine 1.7. Alb umin 2.3 corrected calcium is 10. Current Medications: Include, 1.Aspirin. 2.Albuterol. 3.Plavix. 4.Isosorbide. 5.Metoprolol. 6.Tylenol. 7.Lasix 40 daily. 8.Ipratropium. Assessment And Plan: 1.Acute kidney injury on advanced chronic kidney disease, normal size kidney secondary to cardiorena l/diabetes nephropathy, stable currently. I am going to switch Lasix to oral. Patient cleared from the Renal standpoint for discharge planning to follow up in the office in 2-3 weeks. 2.Hypertension, controlled, optimal. We will continue to utilize blood pressure for more diuresis. We will consider SAMANTHA inhibitor or ARB as outpatient. 3.Coronary artery disease with congestive heart failure as by Primary and Cardiology. 4.Diabetes as by Primary. 5.Hyponatremia, dilutional. Continue diuresis. JOSE/OMARI Voice ID: [id number] Report ID: [id number]
[2023-06-24] MEDS: HYDRALAZINE HCL 20 MG/ML VIAL IV PRN ×2 (05:02→12:11)
[2023-06-24 07:18] LABS: Albumin 2.9 g/dL (3.4-5.0); Phosphorus 2.5 mg/dL (2.5-4.9); Potassium 4.4 mEq/L (3.5-5.1)
[2023-06-24] MEDS: METOPROLOL TAR 50 MG TAB PO SCH ×2 (07:41→20:12)
[2023-06-24] MEDS: CLOPIDOGREL 75 MG TABLET PO SCH (07:41)
[2023-06-24] MEDS: ISOSORBIDE DINIT 5 MG TAB PO SCH ×2 (07:42→20:11)
[2023-06-24] MEDS: FUROSEMIDE 40 MG TABLET PO SCH (07:42)
[2023-06-24] MEDS: ASPIRIN EC 81 MG TAB PO SCH (07:43)
[2023-06-24] MEDS: INSULIN REGULAR (HUMAN) 100 UNIT/ML SQ SCH ×4 (07:43→20:13)
[2023-06-24] MEDS: ENSURE ENLIVE 237 ML CAN PO SCH (07:52)
[2023-06-24] MEDS: ACETAMINOPHEN 500 MG TAB PO PRN (10:53)
[2023-06-24 11:18] LABS: Albumin, (SPE) 2.9 g/dL (3.8-4.8); Alpha-1-Globulins 0.5 g/dL (0.2-0.3); Alpha-2-Globulins 0.9 g/dL (0.5-0.9); Gamma Globulins 1.2 g/dL (0.8-1.7); INTERPRETATION REPORT
[2023-06-24] MEDS: BENZONATATE 100 MG CAP PO PRN ×2 (12:11→20:12)
--- NOTE | 2023-06-24 13:57 | P.PN ---
Date of Service: 06/24/23 Subjective: No acute events overnight improving appetite, cough attempting to wean oxygen- still at 1L Persistent nreoa-nhyo-jot-productive ROS: 10 point ROS as noted above, otherwise negative Physical exam GEN: Alert, oriented, NAD HEENT: Normal conjunctiva, sclera anicteric CV: Regular rate and rhythm, no edema Pulm: Nonlabored respirations nasal cannula oxygen1 L ABD: Soft, nontender, nondistended MSK: No joint tenderness Integumentary: No rashes Neuro: Normal speech, normal affect Vitals reviewed Assessment: Sepsis secondary to left upper and left mid lung pneumonia Acute hypoxic respiratory failure Diabetes mellitus type 6dmh-qmvqsgi-rbgzpghup with hyperglycemia Acute kidney injury with mild hyperkalemia Hypertension CAD Plan: Sepsis secondary to left upper and left mid lung pneumonia Acute hypoxic respiratory failure Completed 4 days IV zithromax, 6 days IV rocephin Persistent cough-not able to expectorate mucinex added, continue ICS, PT/ambulation Blood cultures NGTD Supplemental oxygen as needed, wean as tolerated-currently 1LNC Working well with physical therapy Uninsured, from [place] visiting, will be difficult to obtain home 02 Diabetes mellitus type 4spz-obuwnbd-bqoydrqhc with hyperglycemia ACHS Accu-Chek, sliding scale insulin A1c 10.4 Blood sugar improved Hold metformin given MARTA will need new med/insulin at discharge Family plan on her staying here for a couple weeks then returning to [place] Acute kidney injury with mild hyperkalemia Seen by nephrology who feel patient is overloaded Renal function stable creatinine around 1.7 On p.o. Lasix Nephrology following Monitor chemistry daily Hypertension CAD Home medications continued DVT PPX: Heparin subcu Code status: Full Discharge Plan: Home Plan to discharge in: 24 to 48 hours hours Time Spent Managing Pts Care (In Minutes): 35
[2023-06-24] MEDS: GUAIFENESIN 600 MG SA TAB PO SCH ×2 (15:03→20:13)
[2023-06-24] MEDS ORDERED: TRAZODONE 50 MG TABLET PO PRN (16:28)
[2023-06-24] MEDS ORDERED: LABETALOL 20 MG/4ML SYRINGE IV ONE (16:34)
[2023-06-24] MEDS: GLUCERNA SHAKE 237 ML CAN PO SCH (21:00)
--- NOTE | 2023-06-25 00:43 | PN ---
Date of Progress Note: 06/24/2023 Subjective: The patient is admitted to the hospital because of acute kidney injury. The patient has acute kidney injury secondary to cardiorenal syndrome. She has underlying chronic kidney disease st age 1. The patient is on O2 nasal cannula for hypoxemic respiratory failure. Today, she denies ches t pain, palpitation. She was complaining of headache and was medicated with Tylenol. Review of Systems: Denies fever, chills, nausea, vomiting. Denies chest pain, palpitation. Physical Examination: LUNGS: Diminished breath sounds at bases. Heart: S1, S2. Abdomen: Soft. Extremities: Slight edema. Impression And Plan: 1.Acute kidney injury on advanced chronic kidney disease, normal-sized kidneys, secondary to cardior enal and diabetic nephropathy. Patient is hemodynamically stable. She is tolerating Lasix. Patient is currently on maintenance Lasix oral dose. 2.Hypertension. Blood pressure is controlled. Continue Lasix. Plan is to consider an SAMANTHA inhibito r, angiotensin receptor abhilash to be started in outpatient setting. 3.Coronary artery disease with congestive heart failure per Cardiology and primary team. 4.Diabetes mellitus. Avoid metformin. 5.Hyponatremia secondary to cardiorenal syndrome, congestive heart failure. Continue Lasix. ARELIS/OMARI Voice ID: [id number] Report ID: [id number]
[2023-06-25] MEDS: HYDRALAZINE HCL 20 MG/ML VIAL IV PRN (05:11)
[2023-06-25 06:52] LABS: Hematocrit 32.7 % (36.0-45.0); MCV 89.9 fL (80-100); MPV 8.2 fL (7.6-11.3); Platelets 310 thou/uL (152-406); RBC Red Blood Cell Count 3.63 M/uL (3.86-4.86)
[2023-06-25 07:11] LABS: Potassium 4.1 mEq/L (3.5-5.1)
[2023-06-25] MEDS: ASPIRIN EC 81 MG TAB PO SCH (08:44)
[2023-06-25] MEDS: METOPROLOL TAR 50 MG TAB PO SCH ×2 (08:44→20:18)
[2023-06-25] MEDS: GUAIFENESIN 600 MG SA TAB PO SCH ×2 (08:44→20:18)
[2023-06-25] MEDS: CLOPIDOGREL 75 MG TABLET PO SCH (08:45)
[2023-06-25] MEDS: ISOSORBIDE DINIT 5 MG TAB PO SCH ×2 (08:45→20:21)
[2023-06-25] MEDS: FUROSEMIDE 40 MG TABLET PO SCH (08:45)
[2023-06-25] MEDS: INSULIN REGULAR (HUMAN) 100 UNIT/ML SQ SCH ×4 (08:46→20:02)
[2023-06-25] MEDS: GLUCERNA SHAKE 237 ML CAN PO SCH ×2 (08:54→20:18)
--- NOTE | 2023-06-25 10:43 | P.PN ---
Date of Service: 06/25/23 Subjective: Lethargic this morning but arouses easily Was able to take her p.o. medications with family's help Weaned oxygen requirement to .5 L nasal cannula, will continue to monitor O2 saturation ROS: 10 point ROS as noted above, otherwise negative Physical exam GEN: Lethargic, NAD HEENT: Normal conjunctiva, sclera anicteric CV: Regular rate and rhythm, no edema Pulm: Nonlabored respirations nasal cannula oxygen.5 LNC ABD: Soft, nontender, nondistended MSK: No joint tenderness Integumentary: No rashes Neuro: lethargic, normal affect Vitals reviewed Assessment: Sepsis secondary to left upper and left mid lung pneumonia Acute hypoxic respiratory failure Diabetes mellitus type 1cti-xljivnt-dpdmxfhaj with hyperglycemia Acute kidney injury with mild hyperkalemia Hypertension CAD Plan: Sepsis secondary to left upper and left mid lung pneumonia Acute hypoxic respiratory failure Completed 4 days IV zithromax, 6 days IV rocephin Persistent cough-mucinex started 06/24 continue ICS, PT/ambulation Blood cultures NGTD Supplemental oxygen as needed, wean as tolerated-currently .5 LNC Working well with physical therapy Uninsured, from [place] visiting, will be difficult to obtain home 02 Diabetes mellitus type 3rvx-xafdlbu-rfrwlmvca with hyperglycemia ACHS Accu-Chek, sliding scale insulin A1c 10.4 Blood sugar improved Hold metformin given MARTA will need new med/insulin at discharge Family plan on her staying here for a couple weeks then returning to [place] Acute kidney injury with mild hyperkalemia Seen by nephrology who feel patient is overloaded Renal function stable creatinine around 1.27 On p.o. Radha Nephrology following Monitor chemistry daily Hypertension CAD Home medications continued DVT PPX: Heparin subcu Code status: Full Discharge Plan: Home Plan to discharge in: 24 to 48 hours hours Time Spent Managing Pts Care (In Minutes): 25
--- NOTE | 2023-06-25 17:01 | PN ---
Date of Progress Note: 06/25/2023 Subjective: Patient was admitted to the hospital with acute kidney injury secondary to cardiorenal. Patient was diuresed, responding very well, currently on room air. Physical Examination: Vital Signs: Blood pressure 144/89, pulse of 76. Chest: Clear to auscultation. Heart: S1, S2. Regular. Systolic murmur. Abdomen: Soft, nontender. Extremities: No edema. Laboratory Data: Hemoglobin 11. Sodium 131; potassium 4.1; bicarb 42; BUN 42; creatinine 1.2, trend ing down; calcium 9.7. Current Medications: The patient is on include: 1.Plavix. 2.Albuterol. 3.Isosorbide. 4.Metoprolol. 5.Trazodone. 6.Lasix 40 daily. Assessment And Plan: 1.Acute kidney injury on chronic kidney disease, normal-sized kidney, secondary to diabetes, nephrop athy, cardiorenal syndrome. Responding to current dose of Lasix. Continue current Lasix. 2.Hypertension, controlled, optimal. 3.Continue to utilize blood pressure for more diuresis. 4.Hyponatremia, dilutional, recovered. Continue current Lasix dose. 5.Diabetes as by primary. 6.Congestive heart failure with exacerbation as by primary. JOSE/OMARI Voice ID: [id number] Report ID: [id number]
[2023-06-25] MEDS: BENZONATATE 100 MG CAP PO PRN (20:18)
[2023-06-26 06:59] LABS: Hematocrit 33.5 % (36.0-45.0); MCV 89.6 fL (80-100); MPV 8.2 fL (7.6-11.3); Platelets 330 thou/uL (152-406); RBC Red Blood Cell Count 3.74 M/uL (3.86-4.86)
[2023-06-26] MEDS: INSULIN REGULAR (HUMAN) 100 UNIT/ML SQ SCH ×2 (07:30→12:41)
[2023-06-26 07:31] LABS: Potassium 4.4 mEq/L (3.5-5.1)
[2023-06-26] MEDS: METOPROLOL TAR 50 MG TAB PO SCH (09:00)
[2023-06-26] MEDS: FUROSEMIDE 40 MG TABLET PO SCH (09:24)
[2023-06-26] MEDS: ISOSORBIDE DINIT 5 MG TAB PO SCH (09:25)
[2023-06-26] MEDS: CLOPIDOGREL 75 MG TABLET PO SCH (09:25)
[2023-06-26] MEDS: GUAIFENESIN 600 MG SA TAB PO SCH (09:25)
[2023-06-26] MEDS: GLUCERNA SHAKE 237 ML CAN PO SCH (09:26)
[2023-06-26] MEDS: ASPIRIN EC 81 MG TAB PO SCH (09:26)
[2023-06-26 09:52] VITALS: O2SAT 97
--- NOTE | 2023-06-26 10:49 | P.DS ---
Admission Date: 06/17/23 Discharge Date: 06/28/23 Disposition: ROUTINE DISCHARGE Discharge Condition: FAIR Reason for Admission: Pneumonia, hypoxia Brief History of Present Illness: Diagnosis: Sepsis secondary to left upper and left mid lung pneumonia Acute hypoxic respiratory failure Diabetes mellitus type 0bat-rhqhdfy-ckzmyxnwp with hyperglycemia Acute kidney injury with mild hyperkalemia Hypertension CAD HPI 06/17/23 Gabriela Brito is a 83-year-old female with history of hypertension, CAD, jkn-paupqxr-xgstxgiva diabetes presents emergency department chief complaint of shortness of breath, cough. She is here visiting from [place], she got here about a week ago and was already sick when she showed up. Family denies any ill contacts, patient has not been on antibiotics or steroids recently. She was evaluated in the emergency department her labs are significant for white blood cell count 10.9 sodium 131 potassium 5.5 chloride 93 bicarb 34 creatinine 1.44 GFR 36 glucose 573 lactic acid 1.0 BNP 5176 COVID and influenza/RSV negative CT chest without contrast was performed which revealed mild to moderate consolidation left upper lobe and mild left lower lobe consolidations probably pneumonia. Patient was treated with IV antibioticsZosyn in ED, will admit for further valuation management of pneumonia, hyperglycemia, MARTA, acute hypoxic respiratory failure. Hospital Course: Gabriela Brito is a pleasant 83 year old female with a past medical history significant for hypertension, CAD, rnf-bomstxm-kxymgtapd diabetes who was admitted to the [facility] on 06/17/23 for pneumonia, hyperglycemia, MARTA, acute hypoxic respiratory failure. Gabriela Brito presented to the ED with complaints of shortness of breath and cough, she is visiting from [place] and arrived feeling sick. Family has reported that no one else in the household ws currently sick. CT chest without contrast was performed which revealed "mild to moderate consolidation left upper lobe and mild left lower lobe consolidations probably pneumonia". Laboratory evaluations revealed white blood cell count 10.9, sodium 131, potassium 5.5, chloride 93, bicarb 34, creatinine 1.44, GFR 36, glucose 57,3 lactic acid 1.0, BNP 5176, COVID and influenza/RSV negative. She has tolerated and completed IV antibiotics for her pneumonia and sepsis resolved. Blood cultures have no growth to date. She was found to be in fluid overload and tolerated treatment with Lasix. During this admission she has required 3 L nasal cannula and unable to wean completely, still on 1 to 2 L nasal cannula at discharge. MARTA was present and nephrology was consulted, who followed along during Lasix administration. She was hyperglycemic with an A1c of 10.4. Sliding scale insulin with frequent Accu-Checks were tolerated and resulted with glucose levels under 300 which is a dropped from her initial serum glucose of 573. She is able to ambulate with a walker and has an extensive family support. She is tolerating p.o. diet, ambulating with family support, able to sit up in the chair independently, hemodynamically stable, blood sugar and blood pressure more controlled. Family was educated on insulin injections and glucose monitoring. She was provided with 70/30 insulin. Due to her MARTA, metformin was not prescribed. Plavix was prescribed due to the patient only having only a weeks worth of medication with her. Blood pressure was better controlled during this admission and changes to medication were prescribed at discharge. Education was provided to the family that she will need to see a PCP for better glucose and blood pressure management. On 06/26/23, Gabriela Brito was seen on morning rounds and deemed medically stable for discharge. Gabriela was discharged with instructions to schedule follow-up appointments with PCP. Gabriela was provided prescriptions for Insulin, lopressor, furosemide, Plavix, Atrovent nebulizer, Tessalon Perle, and Isodril. The patient and family members were given the opportunity to ask questions and reported no further questions. Furthermore, all questions were answered to the best of my ability. A copy of this discharge summary will be sent to the above providers to facilitate continuity of care. Today, I personally spent 50 minutes with Gabriela, of which greater than 50% of the time was spent in patient education, counseling, and coordination of care as described above. Physical exam GEN: Awake sitting in the bedside chair, NAD HEENT: Normal conjunctiva, sclera anicteric CV: Regular rate and rhythm, no edema, S1 S2 present Pulm: Nonlabored respirations nasal cannula oxygen2 LNC, ABD: Soft/benign, nontender, nondistended MSK: No joint tenderness, can bear weight Integumentary: No rashes Neuro: lethargic, normal affect . Vital Signs/Physical Exam: Temp Pulse Resp BP Pulse Ox 97.0 F 62 18 145/67 H 97 06/26/23 08:00 06/26/23 08:00 06/26/23 08:00 06/26/23 08:00 06/26/23 08:00 Laboratory Data at Discharge: WBC 4.30 thou/uL (4.3-10.9) 06/26/23 06:39 Hgb 11.2 g/dL (12.0-15.0) L 06/26/23 06:39 Hct 33.5 % (36.0-45.0) L 06/26/23 06:39 Plt Count 330 thou/uL (152-406) 06/26/23 06:39 PT 11.9 SECONDS (9.5-12.5) 06/17/23 13:52 INR 1.08 06/17/23 13:52 Sodium 135 mEq/L (136-145) L D 06/26/23 06:39 Potassium 4.4 mEq/L (3.5-5.1) 06/26/23 06:39 BUN 41 mg/dL (7-18) H 06/26/23 06:39 Creatinine 1.47 mg/dL (0.55-1.02) H 06/26/23 06:39 Glucose 137 mg/dL (74-106) H 06/26/23 06:39 Uric Acid 6.2 mg/dL (2.6-6.0) H 06/20/23 07:23 Magnesium 1.9 mg/dL (1.6-2.4) 06/21/23 06:50 Phosphorus 2.5 mg/dL (2.5-4.9) 06/24/23 06:56 Total Bilirubin 0.3 mg/dL (0.2-1.0) 06/17/23 13:52 AST 17 U/L (15-37) 06/17/23 13:52 ALT 19 U/L (13-56) 06/17/23 13:52 Alkaline Phosphatase 174 U/L (45-117) H 06/17/23 13:52 Home Medications: Aspirin Chewable [Aspirin Chewable*] 1 tab PO DAILY 04/06/19 Felodipine [Plendil] 1 tab PO DAILY 04/06/19 Omeprazole 1 tab PO DAILY 04/06/19 Azithromycin 500 mg PO DAILY #7 tablet 04/07/19 Benzonatate [Tessalon Perle*] 100 mg PO TID PRN 30 Days #30 cap 06/26/23 Clopidogrel Bisulfate [Plavix*] 1 tab PO DAILY 30 Days #30 tab 06/26/23 Clopidogrel Bisulfate [Plavix*] 75 mg PO DAILY 06/26/23 Furosemide [Lasix*] 40 mg PO DAILY 5 Days #5 tab 06/26/23 Insulin 70/30 NPH/Reg Human [Novolin 70/30*] 15 unit SQ BID 30 Days #10 ml 06/26/23 Ipratropium Neb [Atrovent*] 0.5 mg NEB [id number] PRN 10 Days #40 amp 06/26/23 Isosorbide Dinit [Isordil*] 10 mg PO BID 30 Days #60 tab 06/26/23 Lancet/Gluc Strip/Needle/Gauze [Tempo Refill Kit (with Gauze)] 1 each ACHS 30 Days #120 kit 06/26/23 Metoprolol Tartrate [Lopressor*] 100 mg PO BID 30 Days #60 tab 06/26/23 New Medications: Ipratropium Neb [Atrovent*] 0.5 mg NEB [id number] PRN 10 Days #40 amp PRN Reason: Wheezing Isosorbide Dinit [Isordil*] 10 mg PO BID 30 Days #60 tab Furosemide [Lasix*] 40 mg PO DAILY 5 Days #5 tab Metoprolol Tartrate [Lopressor*] 100 mg PO BID 30 Days #60 tab Insulin 70/30 NPH/Reg Human [Novolin 70/30*] 15 unit SQ BID 30 Days #10 ml Clopidogrel Bisulfate [Plavix*] 1 tab PO DAILY 30 Days #30 tab Lancet/Gluc Strip/Needle/Gauze [Tempo Refill Kit (with Gauze)] 1 each ACHS 30 Days #120 kit Benzonatate [Tessalon Perle*] 100 mg PO TID PRN 30 Days #30 cap PRN Reason: Cough Physician Discharge Instructions: 1. Please call and schedule a follow-up appointment with your PCP in 3-5 days - Please follow-up with your PCP for medication refills/adjustments - Please follow-up with your PCP for diabetes mellitus management and blood pressure medication management - check blood pressure in the morning and before bedtime 2. Continue diabetic diet 3. Monitor sugar level by checking glucose with fingerstick glucometer 3 times a day, especially before giving the 15 units of insulin - control glucose level with diet modifications such as smaller carbohydrate portions (bread, rice, potatoes, cereal, etc.) 4. Return to ED if symptoms return 5. Home oxygen at 2 L nasal cannula until weaned, obtain a finger pulse oximeter to measure her oxygen saturation New medications Lopressor twice a day Isordil twice a day Tessalon Perle as needed 3 times a day Atrovent inhaler daily 70/30 insulin 15 units BID Diet: ADA Activity: Fall precautions Followup: Unknown,U [Primary Care Provider] - Time spent managing pt's care (in minutes): 50
--- NOTE | 2023-06-26 10:57 | ECHO ---
HEIGHT: 5 ft 0 in WEIGHT: 120 lb 3.2 oz DATE OF STUDY: 06/25/[address]: Fuentes Red NP 2-DIMENSIONAL: YES M.MODE: YES DOPPLER: YES COLOR FLOW: YES TDS: PORTABLE: YES DEFINITY: BUBBLE STUDY: DIAGNOSIS: DYSPNEA, QUESTIONABLE OVERLOAD, CONGESTIVE HEART FAILURE CARDIAC HISTORY: CATHERIZATION: NO SURGERY: NO PROSTHETIC VALVE: NO PACEMAKER: NO MEASUREMENTS (cm) DIASTOLIC (NORMALS) SYSTOLIC (NORMALS) IVSd 0.9 (0.6-1.2) LA Diam 2.6 (1.9-4.0) LVEF 59% LVIDd 3.0 (3.5-5.7) LVIDs 2.1 (2.0-3.5) %FS 30% LVPWd 1.0 (0.6-1.2) Ao Diam 1.9 (2.0-3.7) 2 DIMENSIONAL ASSESSMENT: RIGHT ATRIUM: NORMAL LEFT ATRIUM: NORMAL RIGHT VENTRICLE: NORMAL LEFT VENTRICLE: NORMAL TRICUSPID VALVE: MILD TRICUSPID REGURGITATION MITRAL VALVE: MILD MITRAL REGURGITATION PULMONIC VALVE: NORMAL AORTIC VALVE: MILD AORTIC INSUFFICIENCY PERICARDIAL EFFUSION: NONE AORTIC ROOT: NORMAL LEFT VENTRICULAR WALL MOTION: NORMAL DOPPLER/COLOR FLOW: SEE BELOW COMMENTS: 1. NORMAL LEFT VENTRICULAR EJECTION FRACTION 55-60% WITH NORMAL WALL MOTION 2. GRADE I DIASTOLIC DYSFUNCTION 3. MILD MITRAL REGURGITATION 4. MILD AORTIC INSUFFICIENCY TECHNOLOGIST: DENNISE ANTHONY
[2023-06-26] MEDS ORDERED: D50W 25 GM/50 ML SYRINGE IV PRN (11:26)
[2023-06-26] MEDS ORDERED: GLUCAGON 1 MG/VIAL IM PRN (11:26)
[2023-06-26] MEDS ORDERED: INSULIN 70/30 100 UNITS/ML SQ SCH (11:27)
[2023-06-26] MEDS ORDERED: D10W 125 ML IV PRN (11:31)
--- NOTE | 2023-06-26 12:49 | PN ---
Date of Progress Note: 06/26/2023 Subjective: Patient was admitted to the hospital with acute kidney injury secondary to cardiorenal. Patient has been diuresed very well, responding to the treatment. Patient is still requiring oxygen ation at 2 L. Physical Examination: Vital Signs: Blood pressure 145/67, pulse of 62, afebrile. Chest: Faint rales, more on the left side. Heart: S1, S2. Systolic murmur. Abdomen: Soft, nontender. Extremities: No edema. Neuro: Alert. No focality. Laboratory Data: Hemoglobin 11.2. Sodium 135, potassium 4.4, bicarb 43, BUN 41, creatinine 1.4, sachi cium 9.4. Current Medications: The patient is on include: 1.Aspirin. 2.Isosorbide. 3.Metoprolol. 4.Trazodone. 5.Lasix 40. Assessment And Plan: 1.Acute kidney injury secondary to cardiorenal on chronic kidney disease. This is her baseline norm al volume. I am going to continue current diuresis dose. 2.Hypertension, controlled, optimal. Continue current treatment. 3.Secondary hyperparathyroidism, stable. 4.Anemia of chronic kidney disease. No need for any GEORGIE. 5.Congestive heart failure with exacerbation. Currently, normal volume. Continue current Lasix Anderosn Voice ID: [id number] Report ID: [id number]
[2023-06-26 15:21] VITALS: BP 150/64; TEMP 98.6
== END 2023-06-26 15:23 | disposition home or self-care (01) | DRG 871 ==
LOC: ER 13:15 → ERHOLD 16:59 → 4TH 21:20
PROVIDERS: ADMIT Internal Medicine; ATTEND Internal Medicine
DX: A41.9 Sepsis, unspecified organism (principal); J18.9 Pneumonia, unspecified organism; J96.01 Acute respiratory failure with hypoxia; N17.9 Acute kidney failure, unspecified; E87.1 Hypo-osmolality and hyponatremia; I13.0 Hypertensive heart and chronic kidney disease with heart failure and stage 1 through stage 4 chronic kidney disease, or unspecified chronic kidney disease; N25.81 Secondary hyperparathyroidism of renal origin; I50.9 Heart failure, unspecified; N18.30 Chronic kidney disease, stage 3 unspecified; E11.22 Type 2 diabetes mellitus with diabetic chronic kidney disease; E11.65 Type 2 diabetes mellitus with hyperglycemia; E11.40 Type 2 diabetes mellitus with diabetic neuropathy, unspecified; D63.1 Anemia in chronic kidney disease; E87.5 Hyperkalemia; E78.5 Hyperlipidemia, unspecified; E86.0 Dehydration; I25.10 Atherosclerotic heart disease of native coronary artery without angina pectoris; I25.2 Old myocardial infarction; Z95.1 Presence of aortocoronary bypass graft; Z11.52 Encounter for screening for COVID-19; Z79.82 Long term (current) use of aspirin; Z79.84 Long term (current) use of oral hypoglycemic drugs; Z79.02 Long term (current) use of antithrombotics/antiplatelets; Z79.899 Other long term (current) drug therapy
CPT/HCPCS: 0241U; 36415; 71045; 71250; 76770; 80048; 80069; 80076; 81003; 82607; 82947; 83036; 83540; 83605; 83735; 83880; 83970; 84165; 84439; 84443; 84466; 84484; 84550; 85025; 85027; 85044; 85610; 87040; 93005; 93306; 94640; 97116; 97161; 97530; 99285; J0360; J0696; J1644; J1815; J1940; J2543; J3475; J7030; J7040; J7050; J7613; J7644

== ENCOUNTER 2023-07-10 04:40 | Inpatient (IN) | payer SELFPAY ==
[2023-07-10] MEDS ORDERED: ASPIRIN 81 MG CHEWABLE TABLET ONE (05:03)
[2023-07-10 05:32] LABS: Absolute Lymphocytes (CBC) 1.3 K/uL (0.7-4.9); Hematocrit 31.1 % (36.0-45.0); MPV 9.8 fL (7.6-11.3); Platelets 114 thou/uL (152-406); RBC Red Blood Cell Count 3.41 M/uL (3.86-4.86)
[2023-07-10 05:50] LABS: Bilirubin Direct 0.2 mg/dL (0-0.2); Bilirubin Indirect, Calculated 0.4 mg/dL (0.2-0.8); Bilirubin Total 0.6 mg/dL (0.2-1.0); Magnesium 1.9 mg/dL (1.6-2.4); Potassium 4.8 mEq/L (3.5-5.1); Protein, Total 7.7 g/dL (6.4-8.2); Troponin High Sensitivity 20.1 pg/mL (<58.9)
[2023-07-10] MEDS ORDERED: HYDRALAZINE HCL 25 MG TABLET ONE (05:59)
[2023-07-10] MEDS ORDERED: FUROSEMIDE 40 MG/4 ML VIAL ONE ×2 (06:00→13:35)
[2023-07-10] MEDS ORDERED: MORPHINE 2 MG/ML SYR ONE (06:00)
[2023-07-10] MEDS ORDERED: ONDANSETRON 4 MG (ODT) TAB ONE (06:00)
[2023-07-10 06:21] LABS: SARS-CoV-2 Antigen Rapid Res Negative (Negative)
--- NOTE | 2023-07-10 06:36 | ER ---
Nurse's Notes [facility] Name: Gabriela Gayle Age: 83 yrs Sex: Female : 1940 Arrival Date: 07/10/2023 Time: 04:40 Bed 4 Private MD: Diagnosis: Acute diastolic (congestive) heart failure;Acute pulmonary edema, acute respiratory failure with hypercarbia Presentation: 07/10 05:00 Chief complaint: Patient's son or daughter states: SOB for 2 days; pt on home O2 but km8 daughter is unsure how many liters. Coronavirus screen: Client denies travel out of the [place] in the last 14 days. Ebola Screen: No symptoms or risks identified at this time. Risk Assessment: Do you want to hurt yourself or someone else? Patient reports no desire to harm self or others. Onset of symptoms was July 08, 2023. 05:00 Method Of Arrival: Wheelchair km8 05:00 Acuity: YARITZA 2 km8 05:00 Initial Sepsis Screen: Does the patient meet any 2 criteria? RR > 20 per min. No. km8 Patient's initial sepsis screen is negative. Does the patient have a suspected source of infection? No. Patient's initial sepsis screen is negative. Triage Assessment: 05:00 General: Appears uncomfortable, Behavior is calm, cooperative. Pain: Denies pain. EENT: km8 No signs and/or symptoms were reported regarding the EENT system. Neuro: Level of Consciousness is awake, alert, obeys commands, Oriented to person, place, time, situation. Cardiovascular: Reports shortness of breath, Denies chest pain, Capillary refill < 3 seconds Patient's skin is warm and dry. Respiratory: Reports shortness of breath on exertion cough that is Airway is patent Respiratory effort is even, labored, Respiratory pattern is regular, symmetrical. GI: No signs and/or symptoms were reported involving the gastrointestinal system. : No signs and/or symptoms were reported regarding the genitourinary system. Derm: No signs and/or symptoms reported regarding the dermatologic system. Skin is intact, is healthy with good turgor, Skin is dry, Skin is pink, warm \T\ dry. normal, Skin temperature is warm. Musculoskeletal: Range of motion: intact in all extremities. Historical: - Allergies: 05:05 No Known Allergies; km8 - Home Meds: 05:05 Plavix 75 mg oral tablet 1 tab daily [Active]; metoprolol tartrate 100 mg Oral tablet 1 km8 tab 2 times per day [Active]; isosorbide mononitrate 10 mg Oral tablet 1 tab 2 times per day [Active]; Aspirin 100 mg Oral daily [Active]; nifedipine 30 mg Oral Tablet, Extended Release 24 hr 1 tab daily [Active]; - PMHx: 05:05 diabetes mellitus; Hyperlipidemia; Hypertension; Myocardial infarction; km8 - PSHx: 05:05 heart cath; km8 - Immunization history:: Client reports receiving the 2nd dose of the Covid vaccine, Flu vaccine is not up to date. - Social history:: Smoking status: Patient denies any tobacco usage or history of. Patient/guardian denies using alcohol, street drugs. - Family history:: not pertinent. Screenin:00 [facility] ED Fall Risk Assessment (Adult) History of falling in the last 3 months, km8 including since admission No falls in past 3 months (0 pts) Confusion or Disorientation No (0 pts) Intoxicated or Sedated No (0 pts) Impaired Gait No (0 pts) Mobility Assist Device Used No (0 pt) Altered Elimination No (0 pt) Score/Fall Risk Level 0 - 2 = Low Risk Oriented to surroundings, Maintained a safe environment, Educated pt \T\ family on fall prevention, incl call for assistance when getting out of bed, Assessed \T\ reinforced patient's understanding of fall precautions. Abuse screen: Denies threats or abuse. Denies injuries from another. Nutritional screening: No deficits noted. Tuberculosis screening: No symptoms or risk factors identified. Assessment: 05:00 Reassessment: see triage notes/assessment. [place] [facility] 06:00 Reassessment: Patient appears in no apparent distress at this time. No changes from km8 previously documented assessment. Patient and/or family updated on plan of care and expected duration. Pain level reassessed. Patient is alert, oriented x 3, equal unlabored respirations, skin warm/dry/pink. 06:49 Reassessment: Patient appears in no apparent distress at this time. No changes from 1 previously documented assessment. Patient and/or family updated on plan of care and expected duration. Pain level reassessed. Patient is alert, oriented x 3, equal unlabored respirations, skin warm/dry/pink. Pain: Denies pain. 16:28 Pain: Pain does not radiate. Pain began gradually. ko1 Vital Signs: 05:00 BP 167 / 75; Pulse 83; Resp 22; Temp 96.9(TE); Pulse Ox 95% on R/A; Weight 55 kg (M); km8 Height 5 ft. 0 in. (R); Pain 0/10; 05:15 BP 170 / 73; Pulse 78; Resp 22; Pulse Ox 99% on 2 lpm NC; km8 06:00 BP 175 / 89; Pulse 74; Resp 20; Pulse Ox 98% on 3 lpm NC; km8 06:30 BP 163 / 65; Pulse 68; Resp 20; Pulse Ox 94% on BiPAP; FiO2 36 %; vc1 07:09 BP 153 / 57; Pulse 62; Resp 16; Pulse Ox 94% on BiPAP; ko1 05:00 Body Mass Index 23.68 (55.00 kg, 152.4 cm) km8 05:00 Pain Scale: Adult km8 [place] Coma Score: 05:00 Eye Response: spontaneous(4). Motor Response: obeys commands(6). Verbal Response: km8 oriented(5). Total: 15. ED Course: 04:48 Patient arrived in ED. gm2 04:57 Vitaliy Rivera MD is Attending Physician. sp4 05:00 No provider procedures requiring assistance completed. Oxygen administration via nasal km8 cannula \T\ 2L/min. 05:00 Arm band placed on right wrist. km8 05:00 Patient has correct armband on for positive identification. Bed in low position. Call km8 light in reach. Side rails up X2. Client placed on continuous cardiac and pulse oximetry monitoring. NIBP monitoring applied. Door closed. Noise minimized. Warm blanket given. 05:02 Inserted saline lock: 22 gauge in right antecubital area, using aseptic technique. km8 Blood collected. 05:04 Triage completed. km8 05:16 SARS RAPID Sent. ty 05:16 Influenza Screen (a \T\ B) Sent. ty 05:16 Basic Metabolic Panel Sent. ty 05:16 CBC with Diff Sent. ty 05:16 LFT's Sent. ty 05:16 Magnesium Sent. ty 05:16 NT PRO-BNP Sent. ty 05:16 PT-INR Sent. ty 05:16 Troponin HS Sent. ty 05:48 XRAY Chest (1 view) In Process Unspecified. EDMS 06:24 Provided Education on: admission process. km8 06:35 Eric Farnsworth is Hospitalizing Provider. sp4 07:09 Estefania Mcguire, RN is Primary Nurse. ko1 16:28 Patient admitted, IV remains in place. ko1 Administered Medications: 05:08 Drug: Aspirin PO Chewable Tablet 324 mg PO once; 81 mg tablets x 4 Route: PO; vc1 06:14 Follow up: Response: No adverse reaction km8 06:13 Drug: Furosemide IVP 40 mg IVP once; give over 2 minutes Route: IVP; Site: left km8 antecubital; 06:47 Follow up: Response: No adverse reaction km8 06:13 Drug: HydrALAZINE PO 25 mg PO once Route: PO; km8 06:48 Follow up: Response: No adverse reaction; Blood pressure is lowered km8 06:13 Drug: morphine IVP or IV 2 mg IVP once over 4 mins Route: IVP; Infused Over: 4 mins; km8 Site: left antecubital; 06:47 Follow up: Response: No adverse reaction km8 06:13 Drug: Ondansetron PO 4 mg PO once Route: PO; km8 06:47 Follow up: Response: No adverse reaction km8 Medication: 05:00 VIS not applicable for this client. km8 Outcome: 06:36 Decision to Hospitalize by Provider. sp4 16:28 Admitted to Tele accompanied by main campus medical center, via stretcher, room 210, with chart, Report ko1 called to abeba Beltran 16:28 Condition: stable 16:28 Instructed on the need for admit, 16:54 Patient left the ED. ko1 Signatures: Dispatcher [employer] EDMS Yesica Lino RN RN vc1 Estefania Mcguire, RN RN ko1 Vitaliy Rivera MD MD sp4 Libby De Los Santos 2 Candy Osorio RN RN km8 Albert Orourke Corrections: (The following items were deleted from the chart) 05:10 05:00 BP 167 / 75; Pulse 83bpm; Resp 22bpm; Pulse Ox 95% RA; 55 kg Measured; Height 5 km8 ft. 0 in. Reported; BMI: 23.6; Pain 0/10, Adult; km8
--- NOTE | 2023-07-10 06:36 | EDPHYS ---
Physician Documentation [facility] Name: Gabriela Gayle Age: 83 yrs Sex: Female : 1940 Arrival Date: 07/10/2023 Time: 04:40 Bed 4 Private MD: ED Physician Vitaliy Rivera HPI: 07/10 04:57 This 83 yrs old Female presents to ER via Unassigned with complaints of Chest sp4 Pain. 07:11 83-year-old female history diabetes, hyperlipidemia, also history of hypertension and sp4 [place] and CHF presents with acute onset of dyspnea on exertion starting 2 nights ago associated with palpitations. Dyspnea on exertion has worsened. Patient at home takes nifedipine 30 mg daily, aspirin 100 mg daily, isosorbide dinitrate 10 mg twice a day, metoprolol tartrate 100 mg twice daily, Plavix 75 p.o. daily. On presentation patient is acutely dyspneic. Historical: - Allergies: 05:05 No Known Allergies; km8 - Home Meds: 05:05 Plavix 75 mg oral tablet 1 tab daily [Active]; metoprolol tartrate 100 mg Oral tablet 1 km8 tab 2 times per day [Active]; isosorbide mononitrate 10 mg Oral tablet 1 tab 2 times per day [Active]; Aspirin 100 mg Oral daily [Active]; nifedipine 30 mg Oral Tablet, Extended Release 24 hr 1 tab daily [Active]; - PMHx: 05:05 diabetes mellitus; Hyperlipidemia; Hypertension; Myocardial infarction; km8 - PSHx: 05:05 heart cath; km8 - Immunization history:: Client reports receiving the 2nd dose of the Covid vaccine, Flu vaccine is not up to date. - Social history:: Smoking status: Patient denies any tobacco usage or history of. Patient/guardian denies using alcohol, street drugs. - Family history:: not pertinent. ROS: 07:11 Constitutional: Negative for fever, chills, and weight loss, positive dyspnea on sp4 exertion, positive potation's 07:11 All other systems are negative, Exam: 07:11 Constitutional: This is a well developed, well nourished patient who is awake, alert, sp4 frail elderly female Head/Face: Normocephalic, atraumatic. Eyes: Pupils equal round and reactive to light, extra-ocular motions intact. Lids and lashes normal. Conjunctiva and sclera are not injected. Cornea within normal limits. Periorbital areas with no swelling, redness, or edema. ENT: Nares patent. No nasal discharge, no septal abnormalities noted. Tympanic membranes are normal and external auditory canals are clear. Oropharynx with no redness, swelling, or masses, exudates, or evidence of obstruction, uvula midline. Mucous membranes moist. Neck: Trachea midline, no thyromegaly or masses palpated, and no cervical lymphadenopathy. Supple, full range of motion without nuchal rigidity, or vertebral point tenderness. Chest/axilla: Normal chest wall appearance and motion. Nontender with no deformity. No lesions are appreciated. Cardiovascular: Regular rate and rhythm with a normal S1 and S2. No gallops, murmurs, or rubs. Normal PMI, no JVD. No pulse deficits. Respiratory: Lungs have equal breath sounds bilaterally, clear to auscultation and percussion. No rales, rhonchi or wheezes noted. No increased work of breathing, no retractions or nasal flaring. Abdomen/GI: Soft, non-tender, with normal bowel sounds. No distension or tympany. No guarding or rebound. No evidence of tenderness throughout. Back: No spinal tenderness. No costovertebral tenderness. Skin: Warm, dry with normal turgor. Normal color with no rashes, no lesions, and no evidence of cellulitis. MS/ Extremity: Pulses equal, no cyanosis. Neurovascular intact. Full, normal range of motion. Neuro: Awake and alert, GCS 15, oriented to person, place, time, and situation. Cranial nerves II-XII grossly intact. Motor strength 5/5 in all extremities. Sensory grossly intact. Psych: Awake, alert, with orientation to person, place and time. Behavior, mood, and affect are within normal limits 07:11 ECG was reviewed by the Attending Physician. EKG time zero 4:57 EKG reveals sinus rhythm with PACs at the rate of 83 Vital Signs: 05:00 BP 167 / 75; Pulse 83; Resp 22; Temp 96.9(TE); Pulse Ox 95% on R/A; Weight 55 kg (M); km8 Height 5 ft. 0 in. (R); Pain 0/10; 05:15 BP 170 / 73; Pulse 78; Resp 22; Pulse Ox 99% on 2 lpm NC; km8 06:00 BP 175 / 89; Pulse 74; Resp 20; Pulse Ox 98% on 3 lpm NC; km8 06:30 BP 163 / 65; Pulse 68; Resp 20; Pulse Ox 94% on BiPAP; FiO2 36 %; vc1 07:09 BP 153 / 57; Pulse 62; Resp 16; Pulse Ox 94% on BiPAP; ko1 05:00 Body Mass Index 23.68 (55.00 kg, 152.4 cm) km8 05:00 Pain Scale: Adult km8 Mariia Coma Score: 05:00 Eye Response: spontaneous(4). Motor Response: obeys commands(6). Verbal Response: km8 oriented(5). Total: 15. MDM: 05:11 Patient medically screened. sp4 07:11 Differential diagnosis: acute myocardial infarction, acute pericarditis, anxiety, sp4 coronary artery disease chest wall pain, congestive heart failure. HEART Score: History: Moderately Suspicious (1), ECG: Non specific repolarization disturbance / LBTB / PM (1), Age: > or = 65 years (2), Risk Factors: > or = 3 Risk factors for atherosclerotic disease (2), Troponin: < or = 1 x Normal Limit (0), Total Score = 6. The patient was given aspirin in the Emergency Department. Data reviewed: vital signs, nurses notes, old medical records, lab test result(s), EKG, radiologic studies, plain films. Consideration of Admission/Observation Patient was admitted/placed on observation. Escalation of care including admission/observation considered. Management of patient was discussed with the following: Hospitalist: Admission team . ED course: EXAM: XR Chest, 1 View CLINICAL HISTORY: The patient is 83 years old and is Female; CHEST PAIN TECHNIQUE: Single view of the chest. COMPARISON: No relevant prior studies available. FINDINGS: Lungs: Hazy infiltrate or subsegmental atelectasis in the left lung base. Pleural space: Mild scarring along the left hemidiaphragm pleural surface. No pleural effusion or pneumothorax. Heart: Unremarkable. No cardiomegaly. Mediastinum: Unremarkable. Bones/joints: Mild scoliosis. No acute fracture visualized. Upper abdomen: No free air in the visualized upper abdomen. IMPRESSION: Hazy infiltrate or subsegmental atelectasis in the left lung base. . ED course: Patient warrants admission for acute congestive heart failure also hypoxemia hypercarbia as well. APAP initiated in the ER . 07/10 04:58 Order name: Basic Metabolic Panel; Complete Time: 05:51 sp4 07/10 04:58 Order name: CBC with Diff; Complete Time: 05:51 4 07/10 04:58 Order name: LFT's; Complete Time: 05:51 sp4 07/10 04:58 Order name: Magnesium; Complete Time: 05:51 4 07/10 04:58 Order name: NT PRO-BNP; Complete Time: 05:51 4 07/10 04:58 Order name: PT-INR; Complete Time: 06:14 sp4 07/10 04:58 Order name: Troponin HS; Complete Time: 05:51 sp4 07/10 04:59 Order name: SARS RAPID; Complete Time: 06:34 4 07/10 05:02 Order name: Influenza Screen (a \T\ B) 4 07/10 05:52 Order name: ABG; Complete Time: 07:11 4 07/10 07:43 Order name: Basic Metabolic Panel EDMS 07/10 07:43 Order name: Basic Metabolic Panel EDMS 07/10 07:43 Order name: Basic Metabolic Panel EDMS 07/10 07:43 Order name: Basic Metabolic Panel EDMS 07/10 07:43 Order name: Basic Metabolic Panel EDMS 07/10 07:43 Order name: Basic Metabolic Panel EDMS 07/10 07:43 Order name: Basic Metabolic Panel EDMS 07/10 07:43 Order name: Basic Metabolic Panel EDMS 07/10 07:43 Order name: CBC with Automated Diff EDMS 07/10 07:43 Order name: CBC with Automated Diff EDMS 07/10 07:43 Order name: CBC with Automated Diff EDMS 07/10 07:43 Order name: CBC with Automated Diff EDMS 07/10 07:43 Order name: CBC with Automated Diff EDMS 07/10 07:43 Order name: CBC with Automated Diff EDMS 07/10 07:43 Order name: CBC with Automated Diff EDMS 07/10 07:43 Order name: CBC with Automated Diff EDMS 07/10 07:43 Order name: Magnesium EDMS 07/10 07:43 Order name: Magnesium EDMS 07/10 07:43 Order name: Magnesium EDMS 07/10 07:43 Order name: Magnesium EDMS 07/10 07:43 Order name: Magnesium EDMS 07/10 07:43 Order name: Magnesium EDMS 07/10 07:43 Order name: Magnesium EDMS 07/10 07:43 Order name: Magnesium EDMS 07/10 07:43 Order name: Phosphorus EDMS 07/10 07:43 Order name: Phosphorus EDMS 07/10 07:43 Order name: Phosphorus EDMS 07/10 07:43 Order name: Phosphorus EDMS 07/10 07:43 Order name: Phosphorus EDMS 07/10 07:43 Order name: Phosphorus EDMS 07/10 07:43 Order name: Phosphorus EDMS 07/10 07:43 Order name: Phosphorus EDMS 07/10 07:43 Order name: Troponin High Sensitivity EDMS 07/10 07:43 Order name: Troponin High Sensitivity EDMS 07/10 07:43 Order name: Troponin High Sensitivity EDMS 07/10 04:58 Order name: XRAY Chest (1 view) [facility] 07/10 07:03 Order name: BIPAP [facility] 07/10 04:58 Order name: EKG; Complete Time: 04:58 07/10 07:43 Order name: Physical Therapy Consult [facility] [place] 07/10 04:58 Order name: Cardiac monitoring; Complete Time: 05:01 4 07/10 04:58 Order name: EKG - Nurse/Tech; Complete Time: 05:01 07/10 04:58 Order name: IV Saline Lock; Complete Time: 05:02 4 07/10 04:58 Order name: Labs collected and sent; Complete Time: 05:02 07/10 04:58 Order name: O2 Per Protocol; Complete Time: 05:02 07/10 04:58 Order name: O2 Sat Monitoring; Complete Time: 05:02 EC:11 Rate is 83 beats/min. Rhythm is regular, Sinus Rhythm with PACs. QRS [place] is Normal. CT sp4 interval is normal. QRS interval is normal. QT interval is normal. No Q waves. T waves are Normal. No ST changes noted. Clinical impression: No evidence of ischemia. Interpreted by me. Reviewed by me. Administered Medications: 05:08 Drug: Aspirin PO Chewable Tablet 324 mg PO once; 81 mg tablets x 4 Route: PO; vc1 06:14 Follow up: Response: No adverse reaction km8 06:13 Drug: Furosemide IVP 40 mg IVP once; give over 2 minutes Route: IVP; Site: left 8 antecubital; 06:47 Follow up: Response: No adverse reaction km8 06:13 Drug: HydrALAZINE PO 25 mg PO once Route: PO; km8 06:48 Follow up: Response: No adverse reaction; Blood pressure is lowered km8 06:13 Drug: morphine IVP or IV 2 mg IVP once over 4 mins Route: IVP; Infused Over: 4 mins; km8 Site: left antecubital; 06:47 Follow up: Response: No adverse reaction km8 06:13 Drug: Ondansetron PO 4 mg PO once Route: PO; km8 06:47 Follow up: Response: No adverse reaction km8 Disposition Summary: 07/10/23 06:36 Hospitalization Ordered Notes: Hospitalization Status: Inpatient Admission sp4 Provider: Eric Farnsworth sp4 Condition: Serious sp4 Problem: new sp4 Symptoms: have improved sp4 Bed/Room Type: Standard sp4 Location: Telemetry/MedSurg (Inpatient)(07/10/23 15:56) as6 Room Assignment: 210(07/10/23 15:56) as6 Diagnosis - Acute diastolic (congestive) heart failure sp4 - Acute pulmonary edema, acute respiratory failure with hypercarbia sp4 Discharge Instructions: - Discharge Summary Sheet vc1 Forms: - SBAR form vc1 - Medication Reconciliation Form sp4 - Leadership Thank You Letter sp4 Signatures: Dispatcher [employer] EDBrianna Regan Ashby, RN RN as6 Yesica Lino RN RN vc1 Vitaliy Rivera MD MD sp4 Candy Osorio RN RN km8 Corrections: (The following items were deleted from the chart) 07:46 06:36 Telemetry/MedSurg (Inpatient) sp4 bd 07:46 06:36 sp4 bd 15:56 07:46 [facility] ER HOLD bd as6 15:56 07:46 ERHOLD- bd as6
[2023-07-10 06:40] LABS: Arterial Blood Carboxyhemoglob 1.2 % (0-1.5); Blood Gas Oxyhemoglobin 94.1 % (94-97); Blood O2 Saturation 96.8 % (92-98.5)
--- NOTE | 2023-07-10 06:43 | P.HP ---
Certification for Inpatient Patient admitted to: Observation With expected LOS: >2 Midnights Patient will require the following post-hospital care: None Practitioner: I am a practitioner with admitting privileges, knowledge of patient current condition, hospital course, and medical plan of care. Services: Services provided to patient in accordance with Admission requirements found in Title 42 Section 412.3 of the Code of Federal Regulations Patient History Date of Service: 07/10/23 Reason for admission: Dyspnea History of Present Illness: Gabriela Gayle 83-year-old female with past medical history hypertension, CAD, diabetes mellitus IDDM, presents to the ED Complaining of acute onset of dyspnea on exertion started 2 nights ago associated with palpitations. She was previously admitted earlier this month with pneumonia. ABG showed hypercarbia requiring BiPAP while in the ED. In the ED she was given aspirin, Lasix, Apresoline, morphine, Zofran labratory evaluation WBC 7.8, H&H 10/31, platelets 114, sodium 135, potassium 4.8, BUN/creatinine 36/1.42, CO2 38, BNP 3847, troponin 20.1, COVID-negative, pH 7.26, pCO2 84.9, pO2 96.9, HCO3 37.3 initial vitals BP 167 / 75; Pulse 83; Resp 22; Temp 96.9; Pulse Ox 95% on R/A Chest x-ray shows hazy infiltrates or segmental atelectasis in the left lung base Gabriela will be admitted to hospitalist service for further evaluation and treatment acute respiratory acidosis. Allergies No Known Allergies Allergy (Verified 04/06/19 00:00) Home Medications: Aspirin Chewable [Aspirin Chewable*] 1 tab PO DAILY 04/06/19 Felodipine [Plendil] 1 tab PO DAILY 04/06/19 Omeprazole 1 tab PO DAILY 04/06/19 Azithromycin 500 mg PO DAILY #7 tablet 04/07/19 Benzonatate [Tessalon Perle*] 100 mg PO TID PRN 30 Days #30 cap 06/26/23 Clopidogrel Bisulfate [Plavix*] 1 tab PO DAILY 30 Days #30 tab 06/26/23 Clopidogrel Bisulfate [Plavix*] 75 mg PO DAILY 06/26/23 Furosemide [Lasix*] 40 mg PO DAILY 5 Days #5 tab 06/26/23 Insulin 70/30 NPH/Reg Human [Novolin 70/30*] 15 unit SQ BID 30 Days #10 ml 06/26/23 Ipratropium Neb [Atrovent*] 0.5 mg NEB [id number] PRN 10 Days #40 amp 06/26/23 Isosorbide Dinit [Isordil*] 10 mg PO BID 30 Days #60 tab 06/26/23 Lancet/Gluc Strip/Needle/Gauze [Tempo Refill Kit (with Gauze)] 1 each ACHS 30 Days #120 kit 06/26/23 Metoprolol Tartrate [Lopressor*] 100 mg PO BID 30 Days #60 tab 06/26/23 - Past Medical/Surgical History Diabetic: Yes -: CAD -: Hypertension -: Hyperlipidemia -: DM 2 -: heart cath Psychosocial/ Personal History: Lives at home, in [place] with family - Family History Father Notes: denies Mother Notes: denies - Social History Alcohol use: No CD- Drugs: No Caffeine use: No Review of Systems General: Weakness Respiratory: Shortness of Breath, SOB with Excertion Cardiovascular: Palpitations Physical Examination - Physical Exam General: Alert, In no apparent distress, Oriented x1 HEENT: Atraumatic, Normocephalic, PERRLA Neck: Supple, 2+ carotid pulse no bruit Respiratory: Clear to auscultation bilaterally, Normal air movement Cardiovascular: No edema, Normal pulses, Regular rate/rhythm, Normal S1 S2 Capillary refill: <2 Seconds Gastrointestinal: Normal bowel sounds, Soft and benign Musculoskeletal: No clubbing, No swelling, No contractures Integumentary: No rashes, No breakdown, No significant lesion Neurological: Normal speech, Normal strength at 5/5 x4 extr - Studies Laboratory Data (last 24 hrs) 07/10/23 07/10/23 07/10/23 04:55 04:55 04:55 WBC 7.80 Hgb 10.4 L Hct 31.1 L Plt Count 114 L PT 11.0 INR 1.00 Sodium 135 L Potassium 4.8 BUN 36 H Creatinine 1.42 H Glucose 106 Magnesium 1.9 Total Bilirubin 0.6 AST 22 ALT 25 Alkaline Phosphatase 104 Assessment and Plan - Plan Assessment and plan Acute hypoxic respiratory failure secondary to hypercarbia/respiratory acidosis Fluid volume overload secondary to congestive heart failure Chest x-ray shows "hazy infiltrates or segmental atelectasis in the left lung base." Nebulizer treatments as needed Oxygen as needed BiPAP used in the ED CO2 38, BNP 3847, troponin 20.1, COVID-negative pH 7.26, pCO2 84.9, pO2 96.9, HCO3 37.3 Lasix twice daily Thrombocytopenia Platelet 114 Monitor in a.m. lab Diabetes mellitus IDDM last admission she was given insulin A1C >10 Accu-Chek with sliding scale MARTA versus CKD BUN/creatinine 36/1.42, GFR 30 holding IVF for now DVT PPx SCDs for now Full code LOS 2 to 3-day Discharge Plan: Home Plan to discharge in: 48 Hours - Advance Directives Does patient have a Living Will: No Does patient have a Durable POA for Healthcare: No
[2023-07-10] MEDS ORDERED: MORPHINE 2 MG/ML SYR IV PRN (07:42)
[2023-07-10 10:02] VITALS: BMI 23.6
[2023-07-10] MEDS: FUROSEMIDE 40 MG/4 ML VIAL IV SCH ×2 (13:45→17:26)
--- NOTE | 2023-07-10 14:33 | RAD REPORT ---
EXAM DESCRIPTION: RAD - Chest Single View - 07/10/2023 5:46 am CLINICAL HISTORY: The patient is 83 years old and is Female; CHEST PAIN TECHNIQUE: Single view of the chest. COMPARISON: No relevant prior studies available. FINDINGS: Lungs: Hazy infiltrate or subsegmental atelectasis in the left lung base. Pleural space: Mild scarring along the left hemidiaphragm pleural surface. No pleural effusion or pneumothorax. Heart: Unremarkable. No cardiomegaly. Mediastinum: Unremarkable. Bones/joints: Mild scoliosis. No acute fracture visualized. Upper abdomen: No free air in the visualized upper abdomen. IMPRESSION: Hazy infiltrate or subsegmental atelectasis in the left lung base. 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 The interpreting r adiologist is fully responsible for the content of the report.
[2023-07-10] MEDS ORDERED: D10W 250 ML BAG IV PRN (17:58)
[2023-07-10] MEDS ORDERED: GLUCAGON 1 MG/VIAL IM PRN (17:58)
[2023-07-10] MEDS: IPRATROPIUM BROM 0.5MG/2.5ML NEB SCH (20:04)
[2023-07-10] MEDS: ALBUTEROL 2.5 MG/3 ML NEB SOL NEB SCH (20:04)
[2023-07-10] MEDS: INSULIN REGULAR (HUMAN) 100 UNIT/ML SQ SCH (21:00)
[2023-07-11] MEDS: ALBUTEROL 2.5 MG/3 ML NEB SOL NEB SCH ×3 (01:40→14:37)
[2023-07-11] MEDS: IPRATROPIUM BROM 0.5MG/2.5ML NEB SCH ×3 (01:40→14:37)
[2023-07-11 06:33] LABS: Absolute Lymphocytes (CBC) 0.9 K/uL (0.7-4.9); Hematocrit 29.4 % (36.0-45.0); Lymphocytes % 15.4 % (15.3-44.8); MCV 91.6 fL (80-100); MPV 9.8 fL (7.6-11.3); Platelets 107 thou/uL (152-406)
[2023-07-11 06:52] LABS: Magnesium 1.8 mg/dL (1.6-2.4); Potassium 4.8 mEq/L (3.5-5.1)
[2023-07-11] MEDS: INSULIN REGULAR (HUMAN) 100 UNIT/ML SQ SCH ×3 (07:30→16:30)
[2023-07-11] MEDS ORDERED: D50W 25 GM/50 ML SYRINGE IV PRN (08:25)
[2023-07-11] MEDS ORDERED: GLUCAGON 1 MG/VIAL IM PRN (08:25)
[2023-07-11] MEDS: INSULIN 70/30 100 UNITS/ML SQ SCH ×2 (08:26→16:30)
--- NOTE | 2023-07-11 08:26 | P.PN ---
Date of Service: 07/11/23 Subjective Sleeping during examination, also sleeping when physical therapy arrived Hypercapnea increasing, on 3 LNC ROS 10 point ROS as noted above, otherwise negative Physical Exam General: sleeping, NAD HEENT: Atraumatic, Normocephalic, PERRLA Neck: Supple, 2+ carotid pulse no bruit Respiratory: Clear to auscultation bilaterally, Normal air movement, 3 LNC Cardiovascular: No edema, Normal S1 S2, Regular rate/rhythm Capillary refill: <2 Seconds Gastrointestinal: Normal bowel sounds, Soft and benign, + BS Musculoskeletal: No clubbing, No swelling, No contractures Integumentary: No rashes, No breakdown, No significant lesion Neurological: Normal speech, Normal strength at 5/5 x4 extr Vitals Reviewed Problem list Acute respiratory failure with hypoxia/hypercapnea associated with respiratory acidosis Fluid volume overload secondary to congestive heart failure Thrombocytopenia Diabetes mellitus IDDM MARTA versus CKD Assessment and Plan Acute respiratory failure with hypoxia/hypercapnea associated with respiratory acidosis Fluid volume overload secondary to congestive heart failure Chest x-ray shows "hazy infiltrates or segmental atelectasis in the left lung base." Nebulizer treatments as needed Oxygen as needed BiPAP used in the ED, 3 LNC now initial labs CO2 38, BNP 3847, troponin 20.1/31.1/58.7, COVID-negative pH 7.26, pCO2 84.9, pO2 96.9, HCO3 37.[address] Saldivar consulted, AW lasix and bronchodilators Thrombocytopenia Platelet 107 Monitor in a.m. lab Diabetes mellitus IDDM with hyperglycemia last admission she was given insulin A1C >10 Accu-Chek with sliding scale start 70/30 15 units BID Decreased PO intake Protein supplement MARTA versus CKD BUN/creatinine 45/1.72, GFR 29 holding IVF for now DVT PPx SCDs for now Full code LOS 2 to 3-day Discharge Plan: Home Plan to discharge in: 48 Hours
[2023-07-11] MEDS: FUROSEMIDE 40 MG/4 ML VIAL IV SCH ×2 (08:35→17:00)
--- NOTE | 2023-07-11 15:20 | P.CNS ---
Date of Consult: 07/11/23 Reason for Consult: REsp failure Chief Complaint: Dyspnea History of Present Illness: Age 83 c/o chest christian Greenlandic speaking only/Acute onet of dyspnea 2 nihgt ago Dyspnea has worsened Allergies No Known Allergies Allergy (Verified 04/06/19 00:00) Home Medications: Aspirin Chewable [Aspirin Chewable*] 1 tab PO DAILY 04/06/19 Felodipine [Plendil] 1 tab PO DAILY 04/06/19 Omeprazole 1 tab PO DAILY 04/06/19 Azithromycin 500 mg PO DAILY #7 tablet 04/07/19 Benzonatate [Tessalon Perle*] 100 mg PO TID PRN 30 Days #30 cap 06/26/23 Clopidogrel Bisulfate [Plavix*] 1 tab PO DAILY 30 Days #30 tab 06/26/23 Clopidogrel Bisulfate [Plavix*] 75 mg PO DAILY 06/26/23 Furosemide [Lasix*] 40 mg PO DAILY 5 Days #5 tab 06/26/23 Insulin 70/30 NPH/Reg Human [Novolin 70/30*] 15 unit SQ BID 30 Days #10 ml 06/26/23 Ipratropium Neb [Atrovent*] 0.5 mg NEB [id number] PRN 10 Days #40 amp 06/26/23 Isosorbide Dinit [Isordil*] 10 mg PO BID 30 Days #60 tab 06/26/23 Lancet/Gluc Strip/Needle/Gauze [Tempo Refill Kit (with Gauze)] 1 each ACHS 30 Days #120 kit 06/26/23 Metoprolol Tartrate [Lopressor*] 100 mg PO BID 30 Days #60 tab 06/26/23 - Past Medical/Surgical History Diabetic: Yes -: CAD -: Hypertension -: Hyperlipidemia -: DM 2 -: heart cath Psychosocial/ Personal History: Lives at home, in [place] with family - Family History Father Notes: denies Mother Notes: denies - Social History Alcohol use: No CD- Drugs: No Caffeine use: No Review of Systems is unable to be obtained Physical Examination Temp Pulse Resp BP Pulse Ox 97.8 F 86 18 129/51 L 98 07/11/23 12:00 07/11/23 12:00 07/11/23 12:00 07/11/23 12:00 07/11/23 12:00 General: Alert, Cooperative Respiratory: Clear to auscultation bilaterally, Diminished Cardiovascular: No edema, Regular rate/rhythm, Normal S1 S2 Gastrointestinal: Normal bowel sounds, Soft and benign, Non-distended Musculoskeletal: No clubbing, No swelling Integumentary: No rashes, No breakdown Laboratory Data (last 24 hrs) 07/11/23 07/11/23 06:13 06:13 WBC 6.00 Hgb 9.7 L Hct 29.4 L Plt Count 107 L Sodium 133 L Potassium 4.8 BUN 45 H Creatinine 1.72 H Glucose 281 H Phosphorus 4.0 Magnesium 1.8 - Problems (1) Respiratory failure with hypoxia and hypercapnia Current Visit: Yes Status: Acute Plan: Age 83 AW dyspnea and resp failure. A/C renal failure / Recent hospitlization ECHO NORMAL LEFT VENTRICULAR EJECTION FRACTION 55-60% WITH NORMAL WALL MOTION 2. GRADE I DIASTOLIC DYSFUNCTION 3. MILD MITRAL REGURGITATION 4. MILD AORTIC INSUFFICIENCY BNP elevated CXRY ILD Agree with lasix and bronchodilator CW diurtics for now and bronchodilators Qualifiers: Chronicity: unspecified Qualified Code(s): J96.91 - Respiratory failure, unspecified with hypoxia; J96.92 - Respiratory failure, unspecified with hypercapnia
[2023-07-11 16:27] VITALS: BP 119/46; TEMP 98.2
--- NOTE | 2023-07-11 16:30 | EKG ---
Test Date: 2023-07-10 Test Time: 04:54:57 Casting Machine Operator: SAIDA MEASUREMENT RESULTS: Intervals: Rate: 83 PA: 186 QRSD: 84 QT: 346 QTc: 406 [place]: P: 35 PA: 186 QRS: -17 T: 266 INTERPRETIVE STATEMENTS: Sinus rhythm with premature supraventricular complexes Nonspecific ST and T wave abnormality Abnormal ECG Compared to ECG 06/17/2023 14:31:14 ST (T wave) deviation now present First degree AV block no longer present Left-axis deviation no longer present Myocardial infarct finding no longer present Electronically Signed On 07-11-23 16:26:32 INTERIOR PLANT CARETAKER by Ventura Moreira
[2023-07-11 16:52] VITALS: O2SAT 97
--- NOTE | 2023-07-11 17:26 | P.DS ---
Admission Date: 07/11/23 Discharge Date: 07/11/23 Disposition: ROUTINE DISCHARGE Discharge Condition: FAIR Reason for Admission: Dyspnea Brief History of Present Illness: Diagnosis Acute respiratory failure with hypoxia/hypercapnea associated with respiratory acidosis Fluid volume overload secondary to congestive heart failure Thrombocytopenia Diabetes mellitus IDDM MARTA versus CKD HPI 07/10/24 Gabriela Gayle 83-year-old female with past medical history hypertension, CAD, diabetes mellitus IDDM, presents to the ED Complaining of acute onset of dyspnea on exertion started 2 nights ago associated with palpitations. She was previously admitted earlier this month with pneumonia. ABG showed hypercarbia requiring BiPAP while in the ED. In the ED she was given aspirin, Lasix, Apresoline, morphine, Zofran labratory evaluation WBC 7.8, H&H 10/31, platelets 114, sodium 135, potassium 4.8, BUN/creatinine 36/1.42, CO2 38, BNP 3847, troponin 20.1, COVID-negative, pH 7.26, pCO2 84.9, pO2 96.9, HCO3 37.3 initial vitals BP 167 / 75; Pulse 83; Resp 22; Temp 96.9; Pulse Ox 95% on R/A Chest x-ray shows hazy infiltrates or segmental atelectasis in the left lung base Gabriela will be admitted to hospitalist service for further evaluation and treatment acute respiratory acidosis. Hospital Course: Gabriela Gayle is a pleasant 83 year old female with a past medical history significant for hypertension, CAD, diabetes mellitus IDDM,who was admitted to the [facility] on 07/10/24 for Dyspnea. Gabriela presented to the ED with shortness of breath and dyspnea. She was found to have metabolic acidosis due to hypercapnea. She tolerated Lasix and wearing the BiPAP for several hours, improving to 3 L nasal cannula. She is now on 2 L nasal cannula, breathing has improved, she is resting comfortably in bed. Will continue p.o. Lasix, bronchodilators, and 3 L nasal cannula home O2. She has been hyperglycemic this admission. Due to kidney function, recommended 70/30 insulin BID with frequent glucose checks. Please eat with each injection to avoid hypoglycemic events. On 07/11/24, Gabriela was seen on morning rounds and deemed medically stable for discharge. Gabriela was discharged with instructions to schedule follow-up appointments with PCP. Gabriela was provided prescriptions for albuterol, ipratropium, and lasix. The patient and family members were given the opportunity to ask questions and reported no further questions. Furthermore, all questions were answered to the best of my ability. A copy of this discharge summary will be sent to the above providers to facilitate continuity of care. Today, I personally spent 50 minutes with Gabriela, of which greater than 50% of the time was spent in patient education, counseling, and coordination of care as described above. Physical Exam General: sleeping, NAD HEENT: Atraumatic, Normocephalic, PERRLA Neck: Supple, 2+ carotid pulse no bruit Respiratory: Clear to auscultation bilaterally, Normal air movement, 2 LNC Cardiovascular: No edema, Normal S1 S2, Regular rate/rhythm Capillary refill: <2 Seconds Gastrointestinal: Normal bowel sounds, Soft and benign, + BS Musculoskeletal: No clubbing, No swelling, No contractures Integumentary: No rashes, No breakdown, No significant lesion Neurological: Normal speech, Normal strength at 5/5 x4 extr Vital Signs/Physical Exam: Temp Pulse Resp BP Pulse Ox 98.2 F 86 18 119/46 L 97 07/11/23 16:00 07/11/23 16:00 07/11/23 16:00 07/11/23 16:00 07/11/23 16:00 Laboratory Data at Discharge: WBC 6.00 thou/uL (4.3-10.9) 07/11/23 06:13 Hgb 9.7 g/dL (12.0-15.0) L 07/11/23 06:13 Hct 29.4 % (36.0-45.0) L 07/11/23 06:13 Plt Count 107 thou/uL (152-406) L 07/11/23 06:13 PT 11.0 SECONDS (9.5-12.5) 07/10/23 04:55 INR 1.00 07/10/23 04:55 Sodium 133 mEq/L (136-145) L 07/11/23 06:13 Potassium 4.8 mEq/L (3.5-5.1) 07/11/23 06:13 BUN 45 mg/dL (7-18) H 07/11/23 06:13 Creatinine 1.72 mg/dL (0.55-1.02) H 07/11/23 06:13 Glucose 281 mg/dL (74-106) H 07/11/23 06:13 Phosphorus 4.0 mg/dL (2.5-4.9) 07/11/23 06:13 Magnesium 1.8 mg/dL (1.6-2.4) 07/11/23 06:13 Total Bilirubin 0.6 mg/dL (0.2-1.0) 07/10/23 04:55 AST 22 U/L (15-37) 07/10/23 04:55 ALT 25 U/L (13-56) 07/10/23 04:55 Alkaline Phosphatase 104 U/L (45-117) 07/10/23 04:55 Home Medications: Aspirin Chewable [Aspirin Chewable*] 1 tab PO DAILY 04/06/19 Felodipine [Plendil] 1 tab PO DAILY 04/06/19 Omeprazole 1 tab PO DAILY 04/06/19 Azithromycin 500 mg PO DAILY #7 tablet 04/07/19 Benzonatate [Tessalon Perle*] 100 mg PO TID PRN 30 Days #30 cap 06/26/23 Clopidogrel Bisulfate [Plavix*] 1 tab PO DAILY 30 Days #30 tab 06/26/23 Clopidogrel Bisulfate [Plavix*] 75 mg PO DAILY 06/26/23 Insulin 70/30 NPH/Reg Human [Novolin 7030*] 15 unit SQ BID 30 Days #10 ml 06/26/23 Ipratropium Neb [Atrovent*] 0.5 mg NEB [id number] PRN 10 Days #40 amp 06/26/23 Isosorbide Dinit [Isordil*] 10 mg PO BID 30 Days #60 tab 06/26/23 Lancet/Gluc Strip/Needle/Gauze [Tempo Refill Kit (with Gauze)] 1 each ACHS 30 Days #120 kit 06/26/23 Metoprolol Tartrate [Lopressor*] 100 mg PO BID 30 Days #60 tab 06/26/23 Albuterol Neb [Proventil 0.083% Neb Soln] 2.5 mg NEB [id number] PRN 30 Days #30 amp 07/11/23 Furosemide [Lasix*] 40 mg PO DAILY 5 Days #5 tab 07/11/23 Insulin 70/30 NPH/Reg Human [Novolin 70/30*] 15 unit SQ BIDAC ml 07/11/23 Ipratropium Neb [Atrovent*] 0.5 mg NEB [id number] PRN 30 Days #30 amp 07/11/23 New Medications: Ipratropium Neb [Atrovent*] 0.5 mg NEB [id number] PRN 30 Days #30 amp PRN Reason: Shortness Of Breath Albuterol Neb [Proventil 0.083% Neb Soln] 2.5 mg NEB [id number] PRN 30 Days #30 amp PRN Reason: Shortness Of Breath Furosemide [Lasix*] 40 mg PO DAILY 5 Days #5 tab Physician Discharge Instructions: Gabriela presented to the ED with shortness of breath dyspnea was found to have m etabolic acidosis due to hypercapnea. She tolerated Lasix and the BiPAP for several hours improving to 3 L nasal cannula. She is now on 2 L nasal cannula, breathing has improved, she is resting comfortably in bed. Will continue p.o. Lasix, bronchodilators, and 3 L nasal cannula home O2. She has been hyperglycemic this admission. Due to kidney function, recommend 70/30 insulin BID with frequent glucose checks. Please eat with each injection to avoid hypoglycemic events. 1. Please call and schedule a follow-up appointment with your PCP in 3-5 days to - PCP will monitor oxygen saturation and the need for supplemental oxygen as well as diabetes management. - Please follow-up with your PCP for medication refills/adjustments 2. Continue diabetic diet, continue insulin 70/30 15 units twice a day 3. Check glucose three times a day 4. Fall precautions 5. Return to ED if symptoms worsen New medications Albuterol nebulizer treatment Ipratropium nebulizer treatment lasix 40 mg daily x 5 days Diet: ADA Activity: Fall precautions Followup: NONE,NONE [Primary Care Provider] -
== END 2023-07-11 19:25 | disposition home or self-care (01) | DRG 291 ==
LOC: ER 04:40 → ERHOLD 07:37 → INTOOBSV 07:37 → UNDOADMOB 07:37 → OBSVTOIN 07:37 → ERHOLD 16:08 → 2ND 16:08 → ERHOLD 07-11 08:12 → 2ND 07-11 08:12 → OBSVTOIN 07-11 08:12
PROVIDERS: ADMIT Internal Medicine; ATTEND Internal Medicine
PROC: 5A09457 Assistance with Respiratory Ventilation, 24-96 Consecutive Hours, Continuous Positive Airway Pressure (ICD-10-PCS; principal; 2023-07-11)
DX: I13.0 Hypertensive heart and chronic kidney disease with heart failure and stage 1 through stage 4 chronic kidney disease, or unspecified chronic kidney disease (principal); I50.31 Acute diastolic (congestive) heart failure; J96.02 Acute respiratory failure with hypercapnia; J96.01 Acute respiratory failure with hypoxia; N17.9 Acute kidney failure, unspecified; N18.9 Chronic kidney disease, unspecified; E11.22 Type 2 diabetes mellitus with diabetic chronic kidney disease; E78.5 Hyperlipidemia, unspecified; D69.6 Thrombocytopenia, unspecified; I25.10 Atherosclerotic heart disease of native coronary artery without angina pectoris; I25.2 Old myocardial infarction; Z79.4 Long term (current) use of insulin; Z11.52 Encounter for screening for COVID-19; Z79.82 Long term (current) use of aspirin; Z79.02 Long term (current) use of antithrombotics/antiplatelets; Z79.899 Other long term (current) drug therapy
CPT/HCPCS: 36415; 36600; 71045; 80048; 80076; 82805; 82947; 83735; 83880; 84100; 84484; 85025; 85610; 87804; 87811; 93005; 94640; 94660; 97116; 97161; J1815; J1940; J2270; J7613; J7644; Q0162